=== PATIENT | female | born 2000 | race Caucasian/White ===

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

== ENCOUNTER 2019-04-03 16:30 | Outpatient (RCR) | payer MEDICAID, SELFPAY ==
--- NOTE | 2018-10-09 16:02 | HP.PTEVAL_ITS ---
Patient's Visit Information CAMERON TOMLIN is a 18 year old F referred to Physical Therapy by NICOLLE KINGSTON with a diagnosis of Left Knee Surgery. Date of Evaluation: 10/09/18 Physical Therapist: Sarah Beth Larsen DPT - Visit Plan Frequency: 2x /Week Duration: 4 Weeks Plan: Follow PROTOCOL - Subjective Findings: Patient reports that she had a left knee surgery by Dr. Robert at [facility] September 20, 2018. Went home after surgery- lives in a single story home with porch stairs- lives with fiancee and child who is 6 months old. Does have some help. Patient reports that the knee feels great. Worst: 4/10 Agg: walking long distances, sitting in the same position for to long. Best: 0/10 Best: ice- leans more toward Naproxen instead of Percoset but prefers to take neither. Pain is located in the anterior portion- no radiating pain. Decribes pain as dull and achy. No N/T radiating but does have mild numbness around the incision. Is putting a little bit of weight on it. They never gave her a brace - so she just has it wrapped- per MD. Sees the MD on October 20. Sleep: keeps her awake- hard to get comfortable. PMHx: right knee surgery, sports induced asthma. Meds: Percoset as needed. Zoloft. Fully I prior to surgery- not currently driving. Work: not currently- works at [employer] standing and walking fast paced for most of the day. - Objective posture: FH, RS, increased kyphosis. Gait: antalgic- non weight bearing on the left LE with axillary crutches. Sitting with leg straight out in front of her. WS: pt will weight shift slightly onto the left LE. Palpation: tender along medial border of the patella. ROM: 0-30 degrees. Strength: ankle: 5/5, Knee: quad set visible but unable to do unassisted SLR, hip: 4-/5, core: poor. Flex: HS: mod Gastroc: mod - Goals Goal 1:: Patient will be I with HEP and progression Goal Time Frame: 4-6 Weeks Goal 2:: Patient will ambulate >300 feet with a normalized gait pattern Goal Time Frame: 4-6 Weeks Goal 3:: Patient will demo 0-130 degrees of ROM as allowed by MD protocol Goal Time Frame: 4-6 Weeks Goal 4:: Patient will asc/desc 8 stairs recip Goal Time Frame: 4-6 Weeks - Rehabilitation Potential Physical Therapy Diagnosis: Patient presents with hypomobility- she has decreased ROM, strength, flex and muscular endurance s/p left knee surgery leading to abnormal gait and decreased ability to perform ADL's. Rehabilitation Potential: Fair - Anticipated Interventions Patient/Client Instruction: Educate patient on: Benefits of Fitness Program Therapeutic Exercise to Include: Strength training, Endurance training, Balance training, Coordination, Agility training, Body mechanics, Postural training, Flexibilty training, Gait and locomotor training, Passive ROM, Active ROM, Dynamic Lumbar Stabilization Comment: Follow Protocol For the Purpose of:: To improve muscle performance and motor function Functional electric stimulation: Yes TENS: Yes Cryotherapy (ice pack, ice massage): Yes Thermo therapy (hot pack): Yes Ultrasound (thermal/non thermal): No Thank you for the opportunity to evaluate your patient. For Medicare and Medicare HMO plans, please review the plan of care and approve it. It will need to be FAXED BACK to us at [phone] for Medicare purposes. For Medicare only, by signing this I certify the plan of care. Please let me know if there are questions or concerns regarding this plan of care. Physician Signature: Date:
--- NOTE | 2018-11-09 11:32 | HP.PTREVAL ---
NICOLLE KINGSTON, It has been my pleasure to treat CAMERON TOMLIN over the last 8 visits for Left Knee Surgery. Please see the progress note below for an update on the physical therapy plan of care! Subjective: Only minor pain this date Objective/Function: L knee girth: 42 cm. L knee ROM: 0-87 degrees. L knee MMT: 4/5 throughout Plan Plan: Cont with POC with focus on ROM Goals Goal 1:: Patient will be I with HEP and progression Goal Time Frame: 4-6 Weeks Goal 2:: Patient will ambulate >300 feet with a normalized gait pattern Goal Time Frame: 4-6 Weeks Goal 3:: Patient will demo 0-130 degrees of ROM as allowed by MD protocol Goal Time Frame: 4-6 Weeks Goal 4:: Patient will asc/desc 8 stairs recip Goal Time Frame: 4-6 Weeks Anticipated Interventions Patient/Client Instruction: Educate patient on: Benefits of Fitness Program Therapeutic Exercise to Include: Strength training, Endurance training, Balance training, Coordination, Agility training, Body mechanics, Postural training, Flexibilty training, Gait and locomotor training, Passive ROM, Active ROM, Dynamic Lumbar Stabilization Comment: Follow Protocol For the Purpose of:: To improve muscle performance and motor function Functional electric stimulation: Yes TENS: Yes Cryotherapy (ice pack, ice massage): Yes Thermo therapy (hot pack): Yes Ultrasound (thermal/non thermal): No Please do not hesitate to contact me at [phone] by phone or if you have questions or concerns regarding this new plan of care! Sincerely, Enrique Aragon, PT, ATC
--- NOTE | 2018-12-25 16:57 | HP.PTREVAL ---
NICOLLE KINGSTON, It has been my pleasure to treat CAMERON TOMLIN over the last 12 visits for Left Knee Surgery. Please see the progress note below for an update on the physical therapy plan of care! Subjective: Pt is to see the DrJaycob on Objective/Function: L knee pain 2/10, increases to 4/10 at worst. L knee MMT: 3+/5 with flexion and extension. L knee ROM: 0-120. Pt is progressing well but lacks gross strength for functional activity Plan Plan: Cont as bhavesh Goals Goal 1:: Patient will be I with HEP and progression Goal Time Frame: 4-6 Weeks Goal 2:: Patient will ambulate >300 feet with a normalized gait pattern Goal Time Frame: 4-6 Weeks Goal 3:: Patient will demo 0-130 degrees of ROM as allowed by MD protocol Goal Time Frame: 4-6 Weeks Goal 4:: Patient will asc/desc 8 stairs recip Goal Time Frame: 4-6 Weeks Anticipated Interventions Patient/Client Instruction: Educate patient on: Benefits of Fitness Program Therapeutic Exercise to Include: Strength training, Endurance training, Balance training, Coordination, Agility training, Body mechanics, Postural training, Flexibilty training, Gait and locomotor training, Passive ROM, Active ROM, Dynamic Lumbar Stabilization Comment: Follow Protocol For the Purpose of:: To improve muscle performance and motor function Functional electric stimulation: Yes TENS: Yes Cryotherapy (ice pack, ice massage): Yes Thermo therapy (hot pack): Yes Ultrasound (thermal/non thermal): No Please do not hesitate to contact me at [phone] by phone or if you have questions or concerns regarding this new plan of care! Sincerely, Enrique Aragon, PT, ATC
--- NOTE | 2019-02-15 18:00 | HP.PTREVAL_ITS ---
NICOLLE KINGSTON, It has been my pleasure to treat CAMERON TOMLIN over the last 17 visits for Left Knee Surgery. Please see the progress note below for an update on the physical therapy plan of care! Subjective: My knee is sore today. 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 L knee ROM: 0-125 degrees. L knee MMT: 4/5 throughout. Pt would benefit from further skilled therapy to improve ROM and strength Plan Plan: cont with POC Goals Goal 1:: Patient will be I with HEP and progression Goal Time Frame: 4-6 Weeks Goal 2:: Patient will ambulate >300 feet with a normalized gait pattern Goal Time Frame: 4-6 Weeks Goal 3:: Patient will demo 0-130 degrees of ROM as allowed by MD protocol Goal Time Frame: 4-6 Weeks Goal 4:: Patient will asc/desc 8 stairs recip Goal Time Frame: 4-6 Weeks Anticipated Interventions Patient/Client Instruction: Educate patient on: Benefits of Fitness Program Therapeutic Exercise to Include: Strength training, Endurance training, Balance training, Coordination, Agility training, Body mechanics, Postural training, Flexibilty training, Gait and locomotor training, Passive ROM, Active ROM, Dynamic Lumbar Stabilization Comment: Follow Protocol For the Purpose of:: To improve muscle performance and motor function Functional electric stimulation: Yes TENS: Yes Cryotherapy (ice pack, ice massage): Yes Thermo therapy (hot pack): Yes Ultrasound (thermal/non thermal): No Please do not hesitate to contact me at [phone] by phone or if you have questions or concerns regarding this new plan of care! Sincerely, Enrique Aragon, PT, ATC
--- NOTE | 2019-04-03 17:00 | HP.PTREVAL ---
NICOLLE KINGSTON, It has been my pleasure to treat CAMERON TOMLIN over the last 19 visits for Left Knee Surgery. Please see the progress note below for an update on the physical therapy plan of care! Subjective: Pt returns today after an extended period of illness with her child and long work hours. Objective/Function: L knee MMT: 4-/5 throughout. ROM: 0-130 degrees. Pain 5/10 currently. Pt would benefit from further skilled PT for strenthening at this time Plan Plan: cont with POC Goals Goal 1:: Patient will be I with HEP and progression Goal Time Frame: 4-6 Weeks Goal 2:: Patient will ambulate >300 feet with a normalized gait pattern Goal Time Frame: 4-6 Weeks Goal 3:: Patient will demo 0-130 degrees of ROM as allowed by MD protocol Goal Time Frame: 4-6 Weeks Goal 4:: Patient will asc/desc 8 stairs recip Goal Time Frame: 4-6 Weeks Anticipated Interventions Patient/Client Instruction: Educate patient on: Benefits of Fitness Program Therapeutic Exercise to Include: Strength training, Endurance training, Balance training, Coordination, Agility training, Body mechanics, Postural training, Flexibilty training, Gait and locomotor training, Passive ROM, Active ROM, Dynamic Lumbar Stabilization Comment: Follow Protocol For the Purpose of:: To improve muscle performance and motor function Functional electric stimulation: Yes TENS: Yes Cryotherapy (ice pack, ice massage): Yes Thermo therapy (hot pack): Yes Ultrasound (thermal/non thermal): No Please do not hesitate to contact me at [phone] by phone or if you have questions or concerns regarding this new plan of care! Sincerely, Enrique Aragon, PT, ATC
== END 2019-04-03 19:00 | disposition home or self-care (01) ==
LOC: PT 16:30
PROVIDERS: Family Provider Internal Medicine; PCP Internal Medicine
DX: M25.362 Other instability, left knee (principal)
CPT/HCPCS: 97110; 97161; 97530

== ENCOUNTER 2019-04-30 19:46 | Emergency (ER) | payer MEDICAID, SELFPAY ==
[2019-01-10 10:48] VITALS: BMI 36.3
[2019-04-30 19:48] VITALS: BP 120/79; PULSE 102; RESP 18; TEMP 36.3; O2SAT 98; BMI 38.7
[2019-04-30 20:42] LABS: Mucous, Urine 0 SEEN /hpf (<or=2+)
[2019-04-30 20:45] LABS: Color, Urine Yellow (Yellow); Glucose, Dipstick Normal (Normal); Ketone-Dipstick 5 mg/dl (Negative); Leukocyte Esterase-Dipstick 500 /ul (Negative); Nitrite-Dipstick Negative (Negative); Occult Blood-Urine 10 /ul (Negative); Protein-Dipstick Negative (Negative); Urine Bilirubin Dipstick Negative (Negative); Urine Clarity Sl. Cloudy (Clear); Urine Urobilinogen Normal (Normal)
[2019-04-30 20:51] LABS: Amorphous Sediment 1+ URATE; Bacteria RARE /hpf (None Seen); Red Blood Cells-Urine 0-5 SEEN /hpf (0-5); Squamous Epithelial Cells - UA 5-10 SEEN /hpf (5-10); White Blood Cells 10-25 SEEN /hpf (0-5)
[2019-04-30 21:25] LABS: Absolute Lymphocyte Count 3.78 X10^3/uL (0.83-4.51); Absolute Neutrophil Count 5.2 X10^3/uL (2.0-7.7); Basophil# 0.06 X10^3/uL; Basophil% 0.6 % (0-1); Eosinophil# 0.13 X10^3/uL; Eosinophils% 1.3 % (0-5); Hematocrit 38.3 % (37-47); Hemoglobin 12.5 g/dL (12.0-15.0); Lymphocyte # 3.78 X10^3/ul (4.0); Lymphocyte % 38.3 % (19-41); Mean Corp Hgb Conc 32.6 g/dL (32-36); Mean Corpuscular Hgb 26.8 pg (27.0-32.0); Monocyte# 0.68 X10^3/uL; Monocyte% 6.9 % (0-10); NRBC Flagged by Analyzer 0 % (0-5); Neutrophil # 5.19 X10^3/uL (2.7-7.7); Neutrophil % 52.6 % (47-70); Platelet Count 249 K/mm3 (150-450); RBC Distribution Width CV 13.7 % (11.6-14.6); RBC Distribution Width SD 40.5 fl (35.1-43.9); Red Blood Count 4.67 M/mm3 (4.2-5.4); White Blood Count 9.9 K/mm3 (4.4-11.0)
[2019-04-30 21:38] LABS: Anion Gap 4 (5-15); BUN 14 mg/dL (7-18); BUN/Creat Ratio 15.6 RATIO (10-20); Calcium,Total 9.3 mg/dL (8.5-10.1); Chloride 111 mmol/L (98-107); EST Glomerular Filtration Rate 85 mL/min (>60); Est Glom Filt Rate - Afr Amer 102 mL/min (>60); Estimated Creatinine Clearance 78.86 ml/min; Glucose 101 mg/dL (74-106); Potassium 3.9 mmol/L (3.5-5.1); Sodium Level 140 mmol/L (136-145)
[2019-04-30 22:05] LABS: Internal QC Validated? YES +Cl - CLEAR BKGD; Pregnancy, Urine Negative Negative
--- NOTE | 2019-04-30 22:18 | RAD_ITS ---
STUDY: X-RAY - ABDOMEN/PELVIS REASON FOR EXAM: Female, 19 years old. PT WITH LOWER ABDOMINAL/PELVIC PAIN X FOUR DAYS. CONSTIPATION AND NAUSEA. TECHNIQUE: Two AP supine views of the abdomen and pelvis. COMPARISON: None. FINDINGS: Normal visualized lung bases. There is an unremarkable bowel gas pattern. There is no demonstrated free abdominal air. The visualized liver, spleen and kidneys are grossly normal in size and morphology. Normal soft tissue structures. Normal visualized osseous structures. RAD/Abdomen Single View IMPRESSION: Normal x-ray examination of the abdomen and pelvis. Electronically Signed: Gabe Nice MD at 22:35 EST , Service support ,
[2019-04-30] MEDS: Ketorolac 30 MG/ML Syringe IV (22:40)
--- NOTE | 2019-04-30 23:08 | ED.VIS.GEN ---
History of Present Illness Chief Complaint: Abd Pain Informant: Patient, Family Narrative: Patient states that for the past year she has had intermittent pelvic pain. She states that after delivering last year she got the Nexplanon implant. Therefore she has not had a period. 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 She states that nothing is really different with her symptoms tonight other than they are more intense than they have been. She also notes that she has been constipated for the past couple days. He does note some associated nausea but no fever or vomiting. No rashes. Past Medical History - Allergies and Home Meds Allergies/Adverse Reactions: Allergies guava Allergy (Mild, Verified 04/30/19 19:47) Hives pomegranate Allergy (Mild, Verified 04/30/19 19:47) Hives Primary Care Physician: Brit Payne MD [Primary Care Provider] - Smoking Status: Never smoker Review of Systems General: Denies: Chills, Fever, Sweats Eyes: Denies: Visual changes - bilaterally, Diplopia ENT: Denies: Rhinorrhea, Sore throat Cardiovascular: Denies: Chest pain, Palpitations Respiratory: Denies: Dyspnea, Cough, Dyspnea on exertion Gastrointestinal: Reports: Abdominal pain, Constipation. Denies: Nausea, Vomiting, Diarrhea, Melena, Hematochezia Genitourinary: Denies: Dysuria, Hematuria, Frequency Musculoskeletal: Reports: Back pain. Denies: Neck pain, Extremity Pain Skin: Denies: Rash, Wounds Neurological: Denies: Headache, Weakness, Numbness Physical Exam Vital Signs/Narrative: Vital Signs Temp Pulse Resp BP Pulse Ox 04/30/19 19:48 97.4 F L 102 H 18 120/79 98 Inital Vital Signs reviewed: Yes General: Well nourished, Well developed, Obese, No Acute Distress Head: Normocephalic, Atraumatic Eyes: Perrl, EOMI ENT: Moist mucous membranes, No rhinorrhea Neck: Supple, Nontender Cardiovascular: Regular rate, Regular rhythm, No murmurs Respiratory: No distress, CTA bilaterally, Chest nontender Abdomen: Soft, Nondistended, Normal bowel sounds, Tender. Negative for: Guarding, Rebound tenderness Back: Nontender, Normal Inspection Extremities: Nontender, No edema Skin: Normal color, No rash Neurological: Alert, Oriented x3, Cranial nerves II-XII grossly intact, Normal Strength, Normal Sensation Psychological: Normal affect, Normal Mood Diagnostic/Tx/Re-eval - Medical Decision Making Imp temps have been intermittently present for the past year. Her white count is normal. Urinalysis is normal. She is not . X-ray of the abdomen demonstrates no fecal impaction. There is stool in the right hemicolon but not any significant amount of stool in the transverse or descending colon. She received a dose of Toradol. She is sleeping on repeat examination. Patient will be discharged home to follow-up with gynecology. She is to return if worsening or concerns. ED Disposition - Plan for ED Patient: Disposition: Home or Assisted Living Diagnosis: Abdominal pain Instructions: ABDOMINAL PAIN, Unknown Cause, (Female) Referrals: Vivien Burgos MD [STAFF PHYSICIAN] - As soon as possible
[2019-04-30 23:13] VITALS: BP 128/65; PULSE 99; RESP 16; O2SAT 95
== END 2019-04-30 23:20 | disposition home or self-care (01) ==
PROVIDERS: Emergency Provider Emergency Medicine; Family Provider Internal Medicine; PCP Internal Medicine
DX: R10.9 Unspecified abdominal pain (principal); E66.9 Obesity, unspecified
CPT/HCPCS: 74018; 80048; 81001; 81025; 85025; 96374; 99283; A4216

== ENCOUNTER → 2019-05-09 16:52 | Outpatient (CLI) | payer MEDICAID, SELFPAY ==
[2019-05-09 15:57] VITALS: BMI 38.7
== END ==
PROVIDERS: PCP Internal Medicine; Referring Provider Nurse Practitioner Women's Health; Visit Provider Nurse Practitioner Women's Health
DX: N39.0 Urinary tract infection, site not specified (principal)
CPT/HCPCS: 87086; 87088

== ENCOUNTER → 2019-05-14 18:11 | Outpatient (CLI) | payer MEDICAID, SELFPAY ==
[2019-05-09 15:57] VITALS: BMI 38.7
[2019-05-11 11:59] VITALS: BMI 38.0
--- NOTE | 2019-05-14 18:52 | US_ITS ---
HISTORY: Pelvic pain. Unknown LMP. 64 images. Previous imaging is from January 24, 2016, when the patient was . 64 images. Endovaginal imaging only. Findings: Urinary bladder is not completely decompressed. The uterus measures 6.6 x 3 x 3.5 cm. Endometrial stripe is homogeneous at 8 mm. Myometrium is homogeneous. No large masses or fluid collections. The left ovary is normal in appearance with follicles. Left ovary measures 3.7 x 2.4 x 3.6 cm. Color and pulse-wave Doppler imaging suggests normal flow to left ovarian parenchyma. The right ovary measures 3.9 x 2.1 x 2.5 cm. Follicles are present within the right ovarian parenchyma. Color Doppler imaging suggests flow to right ovarian parenchyma. Pulse-wave Doppler imaging suggest arterial and venous waveforms within the right ovarian parenchyma. US/Transvaginal Non- IMPRESSION: Normal. at 0610 Reported and signed by: Terrence Vann MD Electronically Signed: Terrence Vann MD at 6:08 EST Tel , Service support ,
--- NOTE | 2019-05-14 18:52 | US_ITS ---
HISTORY: Pelvic pain. Unknown LMP. 64 images. Previous imaging is from January 24, 2016, when the patient was . 64 images. Endovaginal imaging only. Findings: Urinary bladder is not completely decompressed. The uterus measures 6.6 x 3 x 3.5 cm. Endometrial stripe is homogeneous at 8 mm. Myometrium is homogeneous. No large masses or fluid collections. The left ovary is normal in appearance with follicles. Left ovary measures 3.7 x 2.4 x 3.6 cm. Color and pulse-wave Doppler imaging suggests normal flow to left ovarian parenchyma. The right ovary measures 3.9 x 2.1 x 2.5 cm. Follicles are present within the right ovarian parenchyma. Color Doppler imaging suggests flow to right ovarian parenchyma. Pulse-wave Doppler imaging suggest arterial and venous waveforms within the right ovarian parenchyma. US/Pelvic (Non ) IMPRESSION: Normal. at 0610 Reported and signed by: Terrence Vann MD Electronically Signed: Terrence Vann MD at 6:08 EST Tel , Service support ,
== END ==
PROVIDERS: PCP Internal Medicine; Visit Provider Nurse Practitioner Women's Health
DX: R10.2 Pelvic and perineal pain (principal)
CPT/HCPCS: 76830; 76856

== ENCOUNTER 2019-06-21 17:00 | Outpatient (RCR) | payer MEDICAID, SELFPAY ==
[2019-01-10 10:48] VITALS: BMI 36.3
--- NOTE | 2019-11-13 13:42 | HP.PT.NRP ---
CAMERON CHÁVEZ was seen in my office for initial evaluation on . The following Plan of Care was established for this patient: This patient was last seen in our office . Pertinent comments regarding their Physical therapy will appear below: Pt was treated for 8 PT visits for L knee pain through the date of 06/21/19. Pt has not returned through todays date and is therefore discontinued at this time. At this point I will be discontinuing this patient from physical therapy. I would be happy to see this patient again in the future if found appropriate by the physician. Thank you! Enrique Aragon, PT, ATC
== END 2019-06-21 19:00 | disposition home or self-care (01) ==
LOC: PT 17:00
PROVIDERS: Family Provider Internal Medicine; PCP Internal Medicine
DX: M25.362 Other instability, left knee (principal)
CPT/HCPCS: 97110; 97164

== ENCOUNTER → 2019-09-07 14:15 | Outpatient (CLI) | payer MEDICAID, SELFPAY ==
[2019-09-07 14:10] VITALS: BMI 38.7
--- NOTE | 2019-09-07 14:15 | RAD_ITS ---
STUDY: X-RAY - LEFT FOOT CLINICAL: Female, 19 years old. great toe injury, pain extends to top of foot TECHNIQUE: 3 view(s) of the foot. COMPARISON: None. FINDINGS: Normal talus, calcaneus, and tarsal bones. Normal visualized subtalar, talonavicular, calcaneocuboid, tarsal and tarsometatarsal articulations. Normal metatarsi. Normal metatarsophalangeal joint of the great toe. Normal tibial and fibular sesamoid bones. Normal interphalangeal joint of the great toe. Normal phalanges of the great toe. Normal second through fifth metatarsophalangeal joints. Normal interphalangeal joints and phalanges of the lesser toes. The soft tissue structures are unremarkable. RAD/Foot min 3 Views IMPRESSION: Normal x-ray examination of the foot. Electronically Signed: Malika Dillard, at 14:53 EDT Tel , Service support ,
== END ==
PROVIDERS: PCP Internal Medicine; Referring Provider Physician Assistant Surgical; Visit Provider Physician Assistant Surgical
DX: S90.32XA Contusion of left foot, initial encounter (principal)
CPT/HCPCS: 73630

== ENCOUNTER → 2020-03-27 | Outpatient (CLI) | payer MEDICAID, SELFPAY ==
[2019-09-07 14:10] VITALS: BMI 38.7
== END | disposition home or self-care (01) ==
PROVIDERS: PCP Internal Medicine; Referring Provider Otolaryngology; Visit Provider Otolaryngology
DX: J01.90 Acute sinusitis, unspecified (principal)
CPT/HCPCS: 87070

== ENCOUNTER → 2020-10-09 15:10 | Outpatient (CLI) | payer MEDICAID, SELFPAY ==
[2020-10-08 16:52] VITALS: BMI 37.3
[2020-10-09 16:39] LABS: Absolute Lymphocyte Count 2.94 X10^3/uL (0.83-4.51); Absolute Neutrophil Count 4.2 X10^3/uL (2.0-7.7); Basophil# 0.03 X10^3/uL; Basophil% 0.4 % (0-1); Eosinophil# 0.12 X10^3/uL; Eosinophils% 1.5 % (0-5); Lymphocyte # 2.94 X10^3/ul (0.83-4.51); Lymphocyte % 37.7 % (19-41); Mean Corp Hgb Conc 33.3 g/dL (32-36); Mean Corpuscular Hgb 29.5 pg (27.0-32.0); Mean Corpuscular Volume 88.4 fL (81-99); Mean Platelet Vol. 9.2 fl (6.2-12.0); Monocyte# 0.51 X10^3/uL; Monocyte% 6.5 % (0-10); NRBC Flagged by Analyzer 0 % (0-5); Neutrophil # 4.18 X10^3/uL (2.7-7.7); Neutrophil % 53.6 % (47-70); Platelet Count 277 K/mm3 (150-450); RBC Distribution Width CV 12.1 % (11.6-14.6); Red Blood Count 4.41 M/mm3 (4.2-5.4); White Blood Count 7.8 K/mm3 (4.4-11.0)
[2020-10-09 16:48] LABS: Internal QC Validated? YES +Cl - CLEAR BKGD; Pregnancy, Serum, hCG Quali. NEGATIVE Negative
[2020-10-09 16:53] LABS: Prothrombin Time (Protime)PT. 12.8 SECONDS (11.7-14.9)
[2020-10-09 16:55] LABS: AST(SGOT) 11 U/L (15-37); Alanine Aminotransfer ALT/SGPT 18 U/L (13-56); Albumin, Serum 3.5 g/dL (3.2-5.0); Alkaline Phosphatase 90 U/L (45-117); Anion Gap 5 (5-15); BUN 10 mg/dL (7-18); BUN/Creat Ratio 12.5 RATIO (10-20); Chloride 105 mmol/L (98-107); EST Glomerular Filtration Rate 95 mL/min (>60); Est Glom Filt Rate - Afr Amer 115 mL/min (>60); Globulin 3.5 g/dL (2.2-4.2); Glucose 78 mg/dL (74-106); Potassium 3.4 mmol/L (3.5-5.1); Sodium Level 139 mmol/L (136-145)
== END ==
PROVIDERS: PCP Internal Medicine; Referring Provider Internal Medicine; Visit Provider Internal Medicine
DX: N91.2 Amenorrhea, unspecified (principal); R23.8 Other skin changes
CPT/HCPCS: 36415; 80053; 84703; 85025; 85610

== ENCOUNTER → 2021-01-27 | Outpatient (CLI) | payer MEDICAID, SELFPAY ==
[2021-01-30 17:32] LABS: HPV Reflexed? NOT INDICATED
== END | disposition home or self-care (01) ==
PROVIDERS: PCP Internal Medicine; Referring Provider Obstetrics & Gynecology; Visit Provider Obstetrics & Gynecology
DX: R30.0 Dysuria (principal); Z12.4 Encounter for screening for malignant neoplasm of cervix
CPT/HCPCS: 87086; 87088; 88175; G0145

== ENCOUNTER 2021-05-29 09:28 | Emergency (ER) | payer MEDICAID, SELFPAY ==
[2021-05-29 09:30] VITALS: BP 114/78; PULSE 91; RESP 16; TEMP 36.8; O2SAT 97; BMI 41.6
--- NOTE | 2021-05-29 10:00 | CT_ITS ---
STUDY: CT BRAIN WITHOUT CONTRAST REASON FOR EXAM: Female, 21 years old. Head injury due to a fall. RADIATION DOSAGE (If Supplied By Facility): CTDIvol = ( 44.99 ) mGy, DLP = ( 779.24 ) mGycm TECHNIQUE: Transaxial CT imaging of the brain was performed without administration of intravenous contrast material. Individualized dose optimization techniques were used for this CT. COMPARISON: No relevant priors. FINDINGS: Normal soft tissue structures. Normal calvarium. Normal size ventricles and extra-axial spaces for the patient''s age. Normal white matter tracts of the cerebral hemispheres. Normal basal ganglia and thalami. Normal brainstem. Normal cerebellum. There is no intracranial hemorrhage. There are no findings of an acute ischemic infarction. Normal visualized paranasal sinuses. CT/Brain/Head without Contrast IMPRESSION: Normal unenhanced CT scan of the brain. Electronically Signed: Julian Milan MD at 10:43 EST ,
--- NOTE | 2021-05-29 10:00 | RAD_ITS ---
STUDY: X-RAY - RIGHT KNEE REASON FOR EXAM: Female, 21 years old. Trauma TECHNIQUE: 3 view(s) of the knee. COMPARISON: None. FINDINGS: Normal visualized distal femur. Normal visualized proximal tibia and fibula. Normal proximal tibiofibular articulation. Normal medial femorotibial compartment. Normal lateral femorotibial compartment. Normal patellofemoral articulation. Moderate sized joint effusion. RAD/Knee 3 Views IMPRESSION: Moderate size joint effusion. Electronically Signed: Julian Milan MD at 11:12 EST ,
--- NOTE | 2021-05-29 10:00 | CT_ITS ---
STUDY: CT CERVICAL SPINE WITHOUT CONTRAST REASON FOR EXAM: Female, 21 years old. Neck pain following a fall. RADIATION DOSAGE (If Supplied By Facility): CTDIvol = ( 26.10 ) mGy, DLP = ( 601.39 ) mGycm TECHNIQUE: High resolution transaxial imaging was performed without contrast material. Sagittal and coronal images were reconstructed. Individualized dose optimization techniques were used for this CT. COMPARISON: None FINDINGS: Normal craniovertebral junction. Normal anterior atlantoaxial articulation. Normal odontoid process. There is straightening of the normal cervical lordosis. Normal vertebral bodies and posterior osseous elements. C2-3: Normal endplates. Normal disc height and morphology. Normal central canal and intervertebral neuroforamina. C3-4: Normal endplates. Normal disc height and morphology. Normal central canal and intervertebral neuroforamina. C4-5: Normal endplates. Normal disc height and morphology. Normal central canal and intervertebral neuroforamina. C5-6: Normal endplates. Normal disc height and morphology. Normal central canal and intervertebral neuroforamina. C6-7: Normal endplates. Normal disc height and morphology. Normal central canal and intervertebral neuroforamina. C7-T1: Normal endplates. Normal disc height and morphology. Normal central canal and intervertebral neuroforamina. Normal visualized soft tissue structures. CT/Spine Cervical without Contras IMPRESSION: Normal unenhanced CT examination of the cervical spine. Electronically Signed: Julian Milan MD at 10:44 EST ,
--- NOTE | 2021-05-29 10:02 | EDS_ITS ---
HPI HPI - Fall History of Present Illness Chief Complaint: Fall Narrative Narrative: Patient presents via EMS with right knee, and hand pain. She slipped on black, thin ice today while she was trying to get into her car. She has had bilateral knee surgery for patellar instability. She states that her right kneecap was displaced laterally and she popped it back in. She was unable to stand afterwards. She sustained injury to her right hand on her fifth digit with mild abrasions. Additionally, she complains of pain at the base of her skull as she struck her head. No loss of consciousness. She does not take blood thinners. [facility] Medical History Amenorrhea Anxiety and depression asthma sports induced Chest pain Easy bruising Epigastric pain GERD (gastroesophageal reflux disease) Home Medications trazodone 50 mg tablet 50 mg PO QHS PRN #90 tab 05/01/19 [Rx Last Taken Unknown] buspirone 7.5 mg tablet 7.5 mg PO BID #60 tab 11/12/20 [Rx Last Taken Unknown] L norgest/E estradiol-E estrad 0.15 mg-30 mcg (84)/10 mcg(7) tabs,3mos 1 tab PO DAILY #91 tab 01/27/21 [Rx Last Taken Unknown] dexamethasone 6 mg tablet 6 mg PO DAILY #5 tab 04/14/21 [Rx Last Taken Unknown] Allergy/AdvReac Type Severity Reaction Status Date / Time guava Allergy Mild Hives Verified 05/29/21 09:29 pomegranate Allergy Mild Hives Verified 05/29/21 09:29 dragonfruit Allergy Mild difficulty Uncoded 05/29/21 09:29 breathing Family History Mother Cancer non hodgkins lymphoma Father Hypertension Surgical History H/O: knee surgery Social History Smoking Status: Never smoker alcohol intake: never details: social substance use type: does not use frequency: 1-2 times per week seatbelt use: always do you feel safe at home: Yes additional social history: Eric [facility] ROS ED ROS Narrative Constitutional: No fever, no chills. HEENT: No sore throat. Positive pain at base of skull. Positive neck pain. No loss of vision. No rhinorrhea. Cardiovascular: No chest pain. No palpitations. No pedal edema. Respiratory: No cough, no shortness of breath. Abdominal: No abdominal pain. No nausea. No vomiting. Genitourinary: No dysuria. No hematuria. Musculoskeletal: No myalgias. Right hand/fifth digit pain. Right lateral knee pain. Pain at base of skull/occiput. Neurologic: No headaches. No dizziness. No lightheadedness. Skin: No rash. No change in color. Psychiatric: No depression. No anxiety. EXAM Physical Exam Narrative Exam Narrative: Afebrile. Vital signs noted. HEENT: Normocephalic. Mild tenderness to palpation occiput and at base of skull. PERRL, EOMI. Neck soft and supple. No point tenderness or step off. Cardiovascular: Regular rate and rhythm. No murmurs, rubs, or gallops appreciated. Respiratory: No tachypnea. Lungs clear to auscultation bilaterally. Gastrointestinal: Abdomen soft, nontender, with normoactive bowel sounds. No rebound or guarding. Neurological: Awake. Alert. Nonfocal, nonlateralizing. Skin: No rash. Normal color. No pallor. Multiple abrasions to fourth and fifth digits right hand, no active bleeding. Musculoskeletal: No pedal edema. Limited range of motion right knee secondary to pain. Diffuse tenderness of patella and lateral tibial plateau. Neurovascular intact distally with EHL intact and palpable dorsalis pedis pulse. Const Vital Signs: 05/29/21 09:30 05/29/21 13:16 Temperature 98.2 F Temperature Source Oral Pulse Rate 91 86 Respiratory Rate 16 18 Blood Pressure 114/78 Blood Pressure Mean 90 Pulse Ox 97 98 Oxygen Delivery Method Room Air MDM MDM MDM Narrative Medical decision making narrative: Comprehensive work-up was pursued. CT of the brain is normal. CT of the cervical spine shows no evidence of fracture. X-ray of the right knee shows moderate-sized joint effusion but no evidence of fracture. She has normal x-ray of her hand. She was slightly nauseated after she was given a [place], so she was administered a Zofran ODT. She will be placed in a knee immobilizer and given crutches. She will continue ice and elevation at home. Her mother states that she would like to follow-up with her own personal orthopedic surgeon at the [facility]. I feel she be discharged safely home with follow-up. Return instructions to the emergency department were reviewed. Disposition is discharged home in stable condition. Radiography Diagnostic Testing: Clinical Impression(s) from Imaging Studies Brain CT 05/29/21 10:00 IMPRESSION: Normal unenhanced CT scan of the brain. Electronically Signed: Julian Milan MD at 10:43 EST , Cervical Spine CT 05/29/21 10:00 IMPRESSION: Normal unenhanced CT examination of the cervical spine. Electronically Signed: Julian Milan MD at 10:44 EST , Knee X-Ray 05/29/21 10:00 IMPRESSION: Moderate size joint effusion. Electronically Signed: Julian Milan MD at 11:12 EST , Hand X-Ray 05/29/21 10:35 IMPRESSION: Normal x-ray examination of the hand. Electronically Signed: Julian Milan MD at 11:11 EST , Discharge Plan Triage Chief Complaint: Fall Other Complaint: Lower Extremity Injury ED Provider: Harvey Goldstein Dx/Rx/DC Orders Clinical Impression: Fall, Knee sprain, Closed head injury, Contusion of hand Instructions: ED Hand Contusion, ED Head Injury (Adult), ED Knee Effusion, ED Knee Sprain Prescriptions: No Action trazodone 50 mg tablet 50 mg PO QHS PRN (Reason: insomnia) Qty: 90 RF: 1 L norgest/e.estradiol-e.estrad [Ashlyna] 0.15 mg-30 mcg (84)/10 mcg (7) tablets,dose pack,3 month 1 tab PO DAILY Qty: 91 RF: 4 buspirone 7.5 mg tablet 7.5 mg PO BID Qty: 60 RF: 1 dexamethasone [Decadron] 6 mg tablet 6 mg PO DAILY Qty: 5 RF: 0 Primary Care Provider: Shahbaz Aleman Referrals: Shahbaz Aleman MD [Primary Care Provider] - Disposition Disposition: Home, Self Care Discharge Date/Time: 05/29/21 13:55
[2021-05-29] MEDS: HYDROcodone Bitartrate/Apap 5/325 Tablet PO (10:11)
--- NOTE | 2021-05-29 10:35 | RAD_ITS ---
STUDY: X-RAY - RIGHT HAND REASON FOR EXAM: Female, 21 years old. History of fall. TECHNIQUE: 3 view(s) of the hand. COMPARISON: None. FINDINGS: Normal radiocarpal articulation. Normal distal radioulnar joint. Normal visualized carpal bones. Normal carpal articulations Normal carpometacarpal articulation of the thumb. Normal second through fifth carpometacarpal joints. Normal metacarpi. Normal metacarpophalangeal joint of the thumb. Normal interphalangeal joint of the thumb. Normal proximal and distal phalanges of the thumb. Normal metacarpophalangeal joints of the second through fifth fingers. Normal proximal and distal interphalangeal joints of the second through fifth fingers. Normal phalanges of the second through fifth fingers. The soft tissue structures are unremarkable. RAD/Hand Min 3 Views IMPRESSION: Normal x-ray examination of the hand. Electronically Signed: Julian Milan MD at 11:11 [facility] ,
[2021-05-29] MEDS: Ondansetron ODT 4 MG Tablet PO (12:54)
[2021-05-29 13:16] VITALS: PULSE 86; RESP 18; O2SAT 98
[2021-05-29] MEDS: COVID-19 VACC, MRNA(PFIZER)/PF 30 MCG/0.3 ML SYRINGE IM (13:20)
== END 2021-05-29 13:55 | disposition home or self-care (01) ==
PROVIDERS: Emergency Provider Emergency Medicine; PCP Family Medicine; Visit Provider Emergency Medicine
DX: S09.90XA Unspecified injury of head, initial encounter (principal); S60.511A Abrasion of right hand, initial encounter; S83.91XA Sprain of unspecified site of right knee, initial encounter; R11.0 Nausea; V48.4XXA Person boarding or alighting a car injured in noncollision transport accident, initial encounter; Y93.89 Activity, other specified; Y99.9 Unspecified external cause status; Y92.9 Unspecified place or not applicable; W00.2XXA Other fall from one level to another due to ice and snow, initial encounter; K21.9 Gastro-esophageal reflux disease without esophagitis; J45.990 Exercise induced bronchospasm; Z23 Encounter for immunization; F41.9 Anxiety disorder, unspecified; F32.A Depression, unspecified; Z79.899 Other long term (current) drug therapy
CPT/HCPCS: 70450; 72125; 73130; 73562; 91300; 99285

== ENCOUNTER → 2021-09-04 | Outpatient (CLI) | payer MEDICAID, SELFPAY | END | disposition home or self-care (01) | LOC: LAB 16:19 | PROVIDERS: PCP Family Medicine; Visit Provider Obstetrics & Gynecology | DX: N92.6 Irregular menstruation, unspecified (principal) | CPT/HCPCS: 36415; 84702 ==

== ENCOUNTER → 2021-09-06 | Outpatient (CLI) | payer MEDICAID, SELFPAY | END | disposition home or self-care (01) | LOC: LAB 12:28 | PROVIDERS: PCP Family Medicine; Visit Provider Obstetrics & Gynecology | DX: N92.6 Irregular menstruation, unspecified (principal) | CPT/HCPCS: 84702 ==

== ENCOUNTER 2021-09-07 07:58 | Emergency (ER) | payer MEDICAID, SELFPAY ==
[2021-09-07 08:00] VITALS: BP 120/77; PULSE 91; RESP 16; TEMP 36.7; O2SAT 99; BMI 39.3
--- NOTE | 2021-09-07 08:22 | US_ITS ---
STUDY: ABDOMINAL ULTRASOUND - RIGHT UPPER QUADRANT REASON FOR VISIT: Female, 21 years old ruq pain TECHNIQUE: Ultrasound evaluation of the right upper quadrant was performed with real-time and static barrios-scale imaging. TECHNICAL QUALITY: Adequate. COMPARISON: None. FINDINGS: Liver: The liver measures 17.6 cm. There is normal echogenicity of the liver. The bile ducts are within normal limits. There is hepatic color flow. The direction of portal flow is hepatopetal. There is no demonstrated mass lesion. Gallbladder: Normal distended gallbladder. The gallbladder wall measures 2 mm. There is a negative sonographic Louise''s sign. There is no pericholecystic fluid. There are no gallstones. Common Bile Duct (C.B.D.): The common bile duct measures 3 mm. Pancreas: Normal size of the head, body and tail of the pancreas. There is normal echogenicity of the pancreas. There is no demonstrated pancreatic mass or cyst. Right Kidney: Normal size of the right kidney. The right kidney measures 11.6 cm. Normal renal cortex. The right cortex measures 1.8 cm. There is no demonstrated renal mass or cyst. There is no right hydronephrosis. US/Gallbladder IMPRESSION: Normal right upper quadrant ultrasound examination. Electronically Signed: Eusebio Nathan MD at 11:09 EDT ,
--- NOTE | 2021-09-07 08:24 | US_ITS ---
STUDY: FIRST TRIMESTER OBSTETRICAL ULTRASOUND REASON FOR EXAM: Female, 21 years old pain RT SIDED PAIN- LMP UNKNOWN HCG 77,975 LMP: TECHNIQUE: Transvaginal TECHNICAL QUALITY: Adequate. PRIOR ULTRASOUND: None. FINDINGS: There is visualization of a single gestational sac in a normal intrauterine position. The mean sac diameter (MSD) measures 5 mm, indicating an estimated gestational age (EGA) of 7 weeks, 5 days. The gestational sac shape is within normal limits. There is a visualized yolk sac. The yolk sac measures millimeters. The placenta is non-visualized. There is a small hypoechoic area adjacent to the gestational sac consistent with a small subchorionic hemorrhage (implantation bleed). There is visualization of a live embryo. The crown-rump length (CRL) measures 14 mm, indicating an estimated gestational age (EGA) of 7 weeks, 5 days. There is demonstrated cardiac activity with a heart rate of 142 bpm. The estimated gestation age (EGA) by US is 7 weeks, 5 days. The estimated date of delivery (JAYASHREE) by US is 04/21/2022. The uterus measures 9.9 x 6.8 x 5.8 cm. There is no demonstrated uterine fibroid. The cervix is closed. The right ovary measures 3.4 x 2.2 x 2.1 cm. There is no right ovarian cyst. There is no visualized right adnexal mass or complex lesion. The left ovary is not visualized. There is no fluid in the cul de sac. US/Transvaginal w/Preg US IMPRESSION: Living intrauterine of 7 weeks 5 days as described above. Electronically Signed: Eusebio Nathan MD at 11:04 EDT ,
--- NOTE | 2021-09-07 08:24 | EX.ED.DYSGE1 ---
HPI History of Present Illness Chief Complaint: Abd Pain Informant: patient and parent Narrative Narrative: G3, P1 positive test last week unknown last menstrual period present 2-day history of waxing waning right upper quadrant abdominal pain with nausea. Sometimes worsen with food. No fevers. No urinary symptoms. She had a repeat quant yesterday here unknown results. Has not not seen OB. However does see Dr. Thai Graves. No abdominal surgery history. No history of known gallbladder disease. Prior similar symptoms: No PFSH PFSH Medical History Amenorrhea Anxiety and depression asthma sports induced Chest pain Easy bruising Epigastric pain GERD (gastroesophageal reflux disease) Home Medications trazodone 50 mg tablet 50 mg PO QHS PRN #90 tab 05/01/19 [Rx Last Taken Unknown] buspirone 7.5 mg tablet 7.5 mg PO BID #60 tab 11/12/20 [Rx Last Taken Unknown] L norgest/E estradiol-E estrad 0.15 mg-30 mcg (84)/10 mcg(7) tabs,3mos 1 tab PO DAILY #91 tab 01/27/21 [Rx Last Taken Unknown] dexamethasone 6 mg tablet 6 mg PO DAILY #5 tab 04/14/21 [Rx Last Taken Unknown] doxylamine-pyridoxine (vit B6) [Diclegis] 1 tab PO QHS #30 tab 09/07/21 [Rx Last Taken Unknown] Allergy/AdvReac Type Severity Reaction Status Date / Time guava Allergy Mild Hives Verified 09/07/21 08:01 pomegranate Allergy Mild Hives Verified 09/07/21 08:01 dragonfruit Allergy Mild difficulty Uncoded 09/07/21 08:01 breathing Family History Mother Cancer non hodgkins lymphoma Father Hypertension Surgical History H/O: knee surgery Social History Smoking Status: Never smoker alcohol intake: never details: social substance use type: does not use frequency: 1-2 times per week seatbelt use: always do you feel safe at home: Yes additional social history: Eric ROS ROS ED Constitutional Constitutional ED: Denies chills, fever(s) or sweats Eyes Eyes: Denies change in vision ENT ENT ED: Denies dysphagia or sore throat Cardiovascular Cardiovascular: Denies chest pain, leg edema, palpitations or racing heartbeat Respiratory/Chest Respiratory/Chest: Denies cough, dyspnea or dyspnea on exertion Gastrointestinal Gastrointestinal: Reports abdominal pain and nausea; Denies diarrhea or vomiting Genitourinary Genitourinary ED: Denies dysuria, hematuria or urinary frequency Musculoskeletal Musculoskeletal: Denies back pain, extremity pain or neck pain Integumentary Denies rash or wounds Neurologic Neurologic: Denies headache(s), paresthesias or weakness EXAM Physical Exam Const Vital Signs: 09/07/21 08:00 09/07/21 10:59 Temperature 98.0 F Temperature Source Temporal Pulse Rate 91 Respiratory Rate 16 Blood Pressure 120/77 115/61 Blood Pressure Mean 91 79 Pulse Ox 99 Oxygen Delivery Method Room Air Positive well nourished and well developed General Appearance ED: well developed and NAD HEENT Reports moist mucous membranes normocephalic and atraumatic Eyes PERRL, EOMs intact bilaterally and conjunctivae normal General Eye ED: Yes normal appearance of both eyes Neck no lymphadenopathy and supple General: Negative for tenderness Chest Wall Chest: Negative for tenderness Resp normal respiratory effort and normal air movement Effort and Inspection: symmetric chest movement; Negative for respiratory distress Cardio regular rate, regular rhythm and no murmurs Peripheral Pulses: pulses 2+ throughout GI normal to inspection, nondistended, normoactive bowel sounds GI Narrative: Mild right upper quadrant tenderness. No guarding or rebound. Palpation: Negative for guarding or rebound tenderness present Back/Spine no CVA tenderness and no thoracic nor lumbar tenderness Extremity normal to inspection General Extremety ED: Negative for edema or tenderness General Extremity: Negative for edema Neuro oriented x3 and no sensory deficits noted Sensorium / Orientation: awake and alert Skin no rashes or lesions noted and no wounds MDM MDM MDM Narrative Medical decision making narrative: Reviewed labs she had a quant level went from 60,000 up to 78,000 yesterday. We will obtain abdominal labs right upper quadrant ultrasound on the transvaginal ultrasound for evaluation of her . She will be given fluids and Reglan for her nausea. Symptoms improved with Reglan she is able tolerate oral fluids. Abdominal labs all normal. Ultrasound gallbladder was normal with a normal common bile duct. Pelvic ultrasound noted 7-week 5-day intrauterine gestation heart tones of 142. Information updated patient and mother. They will follow-up with OB as an outpatient. She is provided prescription for Diclegis just for morning sickness. I discussed monitoring for biliary colic with specific foods if it recurs. All questions answered. Lab Data Attestation: I reviewed the patient's lab results. Labs: Laboratory Results - last 24 hr 09/07/21 09/07/21 09/07/21 08:30 08:30 09:00 WBC 6.5 RBC 3.79 L Hgb 11.2 L Hct 33.9 L MCV 89.4 MCH 29.6 MCHC 33.0 RDW Std Deviation 42.4 RDW Coeff of Dedra 13.0 Plt Count 207 MPV 8.7 Immature Gran % (Auto) 0.300 Neut % (Auto) 62.7 Lymph % (Auto) 28.0 [place] % (Auto) 7.0 Eos % (Auto) 1.5 Baso % (Auto) 0.5 Absolute Neuts (auto) 4.1 Absolute Lymphs (auto) 1.81 Nucleated RBC % 0 Sodium 137 Potassium 3.9 Chloride 107 Carbon Dioxide 26.0 Anion Gap 4 L BUN 10 Creatinine 0.59 Estim Creat Clear Calc 118.29 Est GFR (MDRD) Af Amer 162 Est GFR (MDRD) Non-Af 134 BUN/Creatinine Ratio 16.9 Glucose 85 Calcium 8.7 Total Bilirubin 0.30 Direct Bilirubin 0.09 AST 11 L ALT 16 Alkaline Phosphatase 72 Total Protein 6.4 Albumin 2.8 L Globulin 3.6 Lipase 84 Urine Color Yellow Urine Clarity Clear Urine pH 7.0 Ur Specific [place] 1.010 Urine Protein Negative Urine Glucose (UA) Normal Urine Ketones Negative Urine Occult Blood Negative Urine Nitrite Negative Urine Bilirubin Negative Urine Urobilinogen Normal Ur Leukocyte Esterase Negative Urine RBC 0 SEEN Urine WBC 0 SEEN Ur Squamous Epith Cells 0-5 SEEN Urine Bacteria 0 SEEN Urine Mucus 0 SEEN Radiography Diagnostic Testing: Clinical Impression(s) from Imaging Studies Gallbladder Ultrasound 09/07/21 08:22 IMPRESSION: Normal right upper quadrant ultrasound examination. Electronically Signed: Eusebio Nathan MD at 11:09 EDT , Obstetrics Ultrasound 09/07/21 08:24 IMPRESSION: Living intrauterine of 7 weeks 5 days as described above. Electronically Signed: Eusebio Nathan MD at 11:04 EDT Reading Location ID and State: [id number] Tel , Service support , Discharge Plan Triage Chief Complaint: Abd Pain ED Provider: Omar Rodriguez Dx/Rx/DC Orders Clinical Impression: First trimester , Nausea/vomiting in , Abdominal pain Instructions: Abdominal Pain, Nausea Vomit Control, First Trimester Prescriptions: New doxylamine-pyridoxine (vit B6) [Diclegis] 10-10 mg tablet,delayed release (DR/EC) 1 tab PO QHS Qty: 30 RF: 0 No Action trazodone 50 mg tablet 50 mg PO QHS PRN (Reason: insomnia) Qty: 90 RF: 1 L norgest/e.estradiol-e.estrad [Ashlyna] 0.15 mg-30 mcg (84)/10 mcg (7) tablets,dose pack,3 month 1 tab PO DAILY Qty: 91 RF: 4 buspirone 7.5 mg tablet 7.5 mg PO BID Qty: 60 RF: 1 dexamethasone [Decadron] 6 mg tablet 6 mg PO DAILY Qty: 5 RF: 0 Primary Care Provider: Shahbaz Aleman Referrals: Vivien Burgos MD [STAFF PHYSICIAN] - As soon as possible Shahbaz Aleman MD [Primary Care Provider] - Activity Restrictions/Additional Instructions: Normal gallbladder work-up including ultrasound. Transvaginal ultrasound notes a 7-week 5-day heart tones 142. Continue your vitamins. Monitor symptoms. Follow-up with your doctor. Disposition Disposition: Home, Self Care Discharge Date/Time: 09/07/21 11:28
[2021-09-07] MEDS: Metoclopramide 10 MG/2 ML Vial 5 MG IV (08:38)
[2021-09-07] MEDS: 0.9% Normal Saline 1,000 ML 150 ML IV (08:38)
[2021-09-07 08:41] LABS: Absolute Lymphocyte Count 1.81 X10^3/uL (0.83-4.51); Absolute Neutrophil Count 4.1 X10^3/uL (2.0-7.7); Basophil# 0.03 X10^3/uL; Basophil% 0.5 % (0-1); Eosinophils% 1.5 % (0-5); Hematocrit 33.9 % (37-47); Hemoglobin 11.2 g/dL (12.0-15.0); Lymphocyte # 1.81 X10^3/ul (0.83-4.51); Mean Corpuscular Hgb 29.6 pg (27.0-32.0); Mean Corpuscular Volume 89.4 fL (81-99); Mean Platelet Vol. 8.7 fl (6.2-12.0); Monocyte# 0.45 X10^3/uL; NRBC Flagged by Analyzer 0 % (0-5); Neutrophil # 4.06 X10^3/uL (2.7-7.7); Neutrophil % 62.7 % (47-70); Platelet Count 207 K/mm3 (150-450); RBC Distribution Width SD 42.4 fl (35.1-43.9); Red Blood Count 3.79 M/mm3 (4.2-5.4); White Blood Count 6.5 K/mm3 (4.4-11.0)
[2021-09-07 08:59] LABS: AST(SGOT) 11 U/L (15-37); Alanine Aminotransfer ALT/SGPT 16 U/L (13-56); Albumin, Serum 2.8 g/dL (3.2-5.0); Alkaline Phosphatase 72 U/L (45-117); Anion Gap 4 (5-15); BUN 10 mg/dL (7-18); BUN/Creat Ratio 16.9 RATIO (10-20); Bilirubin, Direct 0.09 mg/dL (0.00-0.30); Calcium,Total 8.7 mg/dL (8.5-10.1); Chloride 107 mmol/L (98-107); Creatinine, Serum 0.59 mg/dL (0.55-1.02); EST Glomerular Filtration Rate 134 mL/min (>60); Est Glom Filt Rate - Afr Amer 162 mL/min (>60); Estimated Creatinine Clearance 118.29 ml/min; Globulin 3.6 g/dL (2.2-4.2); Glucose 85 mg/dL (74-106); Lipase 84 U/L (73-393); Potassium 3.9 mmol/L (3.5-5.1); Protein, Total 6.4 g/dL (6.4-8.2); Sodium Level 137 mmol/L (136-145)
[2021-09-07 09:02] LABS: Bacteria 0 SEEN /hpf (None Seen); Mucous, Urine 0 SEEN /hpf (<or=2+); Red Blood Cells-Urine 0 SEEN /hpf (0-5); White Blood Cells 0 SEEN /hpf (0-5)
[2021-09-07 09:07] LABS: Color, Urine Yellow (Yellow); Glucose, Dipstick Normal (Normal); Ketone-Dipstick Negative (Negative); Leukocyte Esterase-Dipstick Negative /ul (Negative); Nitrite-Dipstick Negative (Negative); Occult Blood-Urine Negative /ul (Negative); Protein-Dipstick Negative (Negative); Urine Bilirubin Dipstick Negative (Negative); Urine Clarity Clear (Clear); Urine Urobilinogen Normal (Normal)
[2021-09-07 09:20] LABS: Squamous Epithelial Cells - UA 0-5 SEEN /hpf (5-10)
[2021-09-07 10:59] VITALS: BP 115/61
== END 2021-09-07 11:28 | disposition home or self-care (01) ==
PROVIDERS: Emergency Provider Emergency Medicine; PCP Family Medicine; Visit Provider Emergency Medicine
DX: O26.891 Other specified pregnancy related conditions, first trimester (principal); R10.11 Right upper quadrant pain; R11.2 Nausea with vomiting, unspecified; Z3A.01 Less than 8 weeks gestation of pregnancy; O99.341 Other mental disorders complicating pregnancy, first trimester; F41.9 Anxiety disorder, unspecified; F32.A Depression, unspecified; Z79.899 Other long term (current) drug therapy; Z98.890 Other specified postprocedural states
CPT/HCPCS: 76705; 76817; 80048; 80076; 81001; 83690; 85025; 96361; 96374; 97110; 99283; J7030; A4216

== ENCOUNTER → 2021-09-11 | Outpatient (CLI) | payer MEDICAID, SELFPAY ==
[2021-09-10 14:32] LABS: Amphetamine Urine VISTA NEGATIVE (<1000 ng/mL); Barbiturate Urine VISTA NEGATIVE (< 200 ng/mL); Benzodiazepine Urine VISTA NEGATIVE (< 200 ng/mL); Cocaine Urine VISTA NEGATIVE (< 300 ng/mL); Ecstacy Urine VISTA NEGATIVE (< 500 ng/mL); Methadone Urine VISTA NEGATIVE (< 300 ng/mL); PCP Urine VISTA NEGATIVE (< 25 ng/mL); THC Urine VISTA NEGATIVE (< 50 ng/mL); Vista UDS pH Range 7
[2021-09-14 02:07] LABS: Chlamydia By Nucleic Acid AMP Negative (Negative)
[2021-09-14 16:45] LABS: Gonococcus By Nucleic Acid AMP Negative (Negative)
== END | disposition home or self-care (01) ==
LOC: LABSPEC 09:21
PROVIDERS: PCP Family Medicine; Visit Provider Obstetrics & Gynecology
DX: Z34.90 Encounter for supervision of normal pregnancy, unspecified, unspecified trimester (principal)
CPT/HCPCS: 80307; 87086; 87088; 87491; 87591

== ENCOUNTER → 2021-10-01 | Outpatient (CLI) | payer MEDICAID, SELFPAY ==
[2021-10-01 11:09] LABS: Absolute Lymphocyte Count 1.99 X10^3/uL (0.83-4.51); Absolute Neutrophil Count 5.3 X10^3/uL (2.0-7.7); Basophil# 0.02 X10^3/uL; Basophil% 0.3 % (0-1); Eosinophil# 0.06 X10^3/uL; Eosinophils% 0.8 % (0-5); Hematocrit 37.5 % (37-47); Hemoglobin 12.5 g/dL (12.0-15.0); Lymphocyte # 1.99 X10^3/ul (0.83-4.51); Lymphocyte % 25.5 % (19-41); Mean Corp Hgb Conc 33.3 g/dL (32-36); Mean Corpuscular Hgb 29.4 pg (27.0-32.0); Mean Corpuscular Volume 88.2 fL (81-99); Mean Platelet Vol. 8.7 fl (6.2-12.0); Monocyte# 0.42 X10^3/uL; Monocyte% 5.4 % (0-10); NRBC Flagged by Analyzer 0 % (0-5); Neutrophil # 5.28 X10^3/uL (2.7-7.7); Neutrophil % 67.6 % (47-70); Platelet Count 209 K/mm3 (150-450); RBC Distribution Width CV 12.6 % (11.6-14.6); RBC Distribution Width SD 40.5 fl (35.1-43.9); Red Blood Count 4.25 M/mm3 (4.2-5.4); White Blood Count 7.8 K/mm3 (4.4-11.0)
[2021-10-01 11:25] LABS: Glucose Challenge Gest 1H 50g 102 mg/dL (70-140)
[2021-10-01 12:12] LABS: HIV - WCH Non-Reactive (Nonreactive); Hepatitis B Surface Antigen Non-Reactive (Nonreactive); Hepatitis C Antibody Non-Reactive (Nonreactive); Rubella IgG Reactive (Nonreactive); Syphilis Antibodies Non-reactive
[2021-10-01 16:03] LABS: NATERA MAILED SPECIMEN
== END | disposition home or self-care (01) ==
PROVIDERS: PCP Family Medicine; Referring Provider Obstetrics & Gynecology; Visit Provider Obstetrics & Gynecology
DX: Z34.81 Encounter for supervision of other normal pregnancy, first trimester (principal)
CPT/HCPCS: 36415; 82950; 85025; 86703; 86762; 86780; 86803; 86850; 86900; 86901; 87340

== ENCOUNTER 2021-10-23 21:16 | Emergency (ER) | payer MEDICAID, SELFPAY ==
[2021-10-23 21:16] VITALS: BP 97/62; PULSE 130; RESP 15; TEMP 36.8; O2SAT 100; BMI 39.6
--- NOTE | 2021-10-23 22:02 | NURSING ---
attempted to do heart beat. MD aware not able to locate.
--- NOTE | 2021-10-23 22:03 | US_ITS ---
EXAM: US ABDOMEN LIMITED, RIGHT UPPER QUADRANT CLINICAL INDICATION: RUQ pain TECHNIQUE: Real-time ultrasound of the right upper quadrant with image documentation. This report was created using [employer] report [employer] technology. COMPARISON: None. FINDINGS: LIVER: Unremarkable. There is normal echotexture. No focal hepatic lesion. No intrahepatic biliary ductal dilation. GALLBLADDER: Unremarkable. No shadowing gallstone. No gallbladder wall thickening is demonstrated. No pericholecystic fluid. Negative sonographic Louise''s sign. COMMON BILE DUCT: Unremarkable as visualized. The proximal common bile duct is within normal limits for the patient''s age. PANCREAS: Unremarkable as visualized. No focal abnormality is demonstrated in the pancreas. No pancreatic ductal dilatation. RIGHT KIDNEY: Unremarkable. There is no hydronephrosis. No shadowing calculus. No focal lesion or perinephric collection is demonstrated. US/Gallbladder IMPRESSION: Normal right upper quadrant ultrasound. Electronically Signed: Joaquín Cortes MD at 23:26 EDT ,
[2021-10-23] MEDS: Ondansetron 4 MG/2 ML Vial IV (22:15)
[2021-10-23] MEDS: HYDROmorphone 1 MG/ML Syringe IV (22:15)
[2021-10-23] MEDS: 0.9% Normal Saline 1,000 ML 999 ML IV ×2 (22:16→23:06)
--- NOTE | 2021-10-23 22:16 | US_ITS ---
EXAM: US , LIMITED CLINICAL INDICATION: . well-being. TECHNIQUE: Real-time limited ultrasound of the maternal uterus with image documentation. This report was created using [employer] report generation technology. COMPARISON: None. FINDINGS: FETUS: Single intrauterine gestational sac. HEART RATE: cardiac activity is seen at 147 bpm. PLACENTA: Placenta is posterior without evidence of placenta previa. AMNIOTIC FLUID: Amniotic fluid deepest vertical pocket is 3.7 cm. CERVIX: Cervical length is 3.8 cm. US/OB Limited (No Biometrics) IMPRESSION: Single live intrauterine . No specific abnormality identified. Electronically Signed: Joaquín Cortes MD at 23:45 EDT ,
--- NOTE | 2021-10-23 22:29 | EDS_ITS ---
HPI History of Present Illness Chief Complaint: Nausea/Vomiting Narrative Narrative: Patient is a female with 1 spontaneous miscarriage who is approximately 14 weeks . She states over the past 2 days she has been noticing increasing upper abdominal pain with bouts of nausea and vomiting. She states is to the point now where she cannot even hold down water and therefore has not been eating or drinking today. She states that there has been no vaginal bleeding or discharge. She denies any fevers chills or dysuria. She states secondary to concern for dehydration as well as the worsening pain she presents for evaluation [facility] Medical History Amenorrhea Anxiety and depression asthma sports induced Chest pain Easy bruising Epigastric pain GERD (gastroesophageal reflux disease) Home Medications vitamin#30 30 mg iron-10 mg iron-folic acid 1 mg-omg3 capsule 1 cap PO DAILY 09/10/21 [History Last Taken Unknown] ondansetron HCl 4 mg tablet 4 mg PO Q8H PRN nausea and vomiting #60 tabs 10/23/21 [Rx Last Taken Unknown] Allergy/AdvReac Type Severity Reaction Status Date / Time guava Allergy Mild Hives Verified 10/23/21 21:21 pomegranate Allergy Mild Hives Verified 10/23/21 21:21 dragonfruit Allergy Mild difficulty Uncoded 09/07/21 08:01 breathing Family History Mother Cancer non hodgkins lymphoma Father Hypertension Surgical History H/O: knee surgery Social History Smoking Status: Never smoker alcohol intake: never details: social substance use type: does not use frequency: 1-2 times per week seatbelt use: always do you feel safe at home: Yes additional social history: Eric [place] ED Constitutional Constitutional ED: Denies chills or fever(s) ENT ENT ED: Denies sore throat Cardiovascular Cardiovascular: Denies chest pain Respiratory/Chest Respiratory/Chest: Denies cough or dyspnea Gastrointestinal Gastrointestinal: Reports abdominal pain, nausea and vomiting; Denies diarrhea Genitourinary Genitourinary ED: Denies dysuria or hematuria Musculoskeletal Musculoskeletal: Denies myalgias Integumentary Denies rash Neurologic Neurologic: Denies headache(s) Hematologic/Lymphatic Hematologic/Lymphatic: Reports easy bruising; Denies easy bleeding EXAM Physical Exam Const Vital Signs: 10/23/21 21:16 10/24/21 00:36 Temperature 98.2 F Temperature Source Temporal Pulse Rate 130 H 90 Respiratory Rate 15 18 Blood Pressure 97/62 102/57 L Blood Pressure Mean 73 Pulse Ox 100 97 Oxygen Delivery Method Room Air Positive well nourished, well developed and obese General Appearance ED: well developed Nutritional Appearance: obese HEENT Reports dry mucous membranes Mouth ED: Yes dry mucous membranes Mouth: dry mucous membranes Eyes PERRL and EOMs intact bilaterally General Eye ED: Negative for scleral icterus Neck supple Resp normal respiratory effort and clear to auscultation bilaterally Cardio regular rhythm Rate: tachycardic GI non-distended GI Narrative: Abdomen is obese soft and nondistended with hypoactive bowel sound. There is pain with palpation in the midepigastric and right upper quadrant region without voluntary guarding or rigidity. No pulsatile mass Auscultation: hyperactive bowel sounds Palpation: soft Back/Spine no CVA tenderness Extremity normal to inspection Neuro oriented x3 and CN's II-XII intact bilaterally Sensorium / Orientation: alert Psych mental status grossly normal Skin no rashes or lesions noted MDM MDM MDM Narrative Medical decision making narrative: Patient presented to the ER with stable vitals. She had pain greatest in the midepigastric and right upper quadrant concerning for possible pancreatitis or gallbladder dysfunction. Basic blood work was obtained which revealed no acute findings. She did have +2 bacteria in her urine but it was grossly contaminated and patient does not have any urinary symptoms and therefore do not feel there is need for antibiotics. The ultrasound of the gallbladder as well as the u terus shows no acute finding. The fetus is within the uterus and has a normal heartbeat. After treatment in the ER patient reported feeling better and had no further bouts of vomiting. Therefore at this time with improvement of symptoms and negative work-up patient is safe for. Lab Data Attestation: I reviewed the patient's lab results. Labs: Laboratory Results - last 24 hr 10/23/21 10/23/21 10/23/21 22:20 22:20 22:20 WBC 8.0 RBC 4.10 L Hgb 12.3 Hct 35.2 L MCV 85.9 MCH 30.0 MCHC 34.9 RDW Std Deviation 39.1 RDW Coeff of Dedra 12.6 Plt Count 170 MPV 9.0 Immature Gran % (Auto) 0.300 Neut % (Auto) 88.2 H Lymph % (Auto) 7.3 L [place] % (Auto) 3.9 Eos % (Auto) 0.0 Baso % (Auto) 0.3 Absolute Neuts (auto) 7.1 Absolute Lymphs (auto) 0.58 L Nucleated RBC % 0 Differential Comment SEE COMMENT Platelet Estimate ADEQUATE RBC Morphology NORM C+C Anisocytosis RARE Sodium 136 Potassium 3.9 Chloride 106 Carbon Dioxide 22.0 Anion Gap 8 BUN 10 Creatinine 0.65 Estim Creat Clear Calc 107.37 Est GFR (MDRD) Af Amer 146 Est GFR (MDRD) Non-Af 121 BUN/Creatinine Ratio 15.4 Glucose 93 Lactic Acid 1.5 Calcium 8.5 Magnesium 1.7 Total Bilirubin 0.40 Direct Bilirubin 0.08 AST 15 ALT 14 Alkaline Phosphatase 82 Total Protein 6.5 Albumin 2.8 L Globulin 3.7 Lipase 97 Urine Color Urine Clarity Urine pH Ur Specific [place] Urine Protein Urine Glucose (UA) Urine Ketones Urine Occult Blood Urine Nitrite Urine Bilirubin Urine Urobilinogen Ur Leukocyte Esterase Urine RBC Urine WBC Ur Squamous Epith Cells Urine Bacteria Urine Mucus 10/23/21 22:20 WBC RBC Hgb Hct MCV MCH MCHC RDW Std Deviation RDW Coeff of [place] Plt Count MPV Immature Gran % (Auto) Neut % (Auto) Lymph % (Auto) [place] % (Auto) Eos % (Auto) Baso % (Auto) Absolute Neuts (auto) Absolute Lymphs (auto) Nucleated RBC % Differential Comment Platelet Estimate RBC Morphology Anisocytosis Sodium Potassium Chloride Carbon Dioxide Anion Gap BUN Creatinine Estim Creat Clear Calc Est GFR (MDRD) Af Amer Est GFR (MDRD) Non-Af BUN/Creatinine Ratio Glucose Lactic Acid Calcium Magnesium Total Bilirubin Direct Bilirubin AST ALT Alkaline Phosphatase Total Protein Albumin Globulin Lipase Urine Color Yellow Urine Clarity Sl. Cloudy Urine pH 6.0 Ur Specific [place] 1.020 Urine Protein 30 H Urine Glucose (UA) Normal Urine Ketones 150 A* Urine Occult Blood Negative Urine Nitrite Negative Urine Bilirubin 1 H Urine Urobilinogen Normal Ur Leukocyte Esterase 500 H Urine RBC 0 SEEN Urine WBC 5-10 SEEN Ur Squamous Epith Cells 10-25 SEEN Urine Bacteria 2+ Urine Mucus 0 SEEN Radiography Diagnostic Testing: Clinical Impression(s) from Imaging Studies Gallbladder Ultrasound 10/23/21 22:03 IMPRESSION: Normal right upper quadrant ultrasound. Electronically Signed: Joaquín Cortes MD at 23:26 EDT , Obstetrics Ultrasound 10/23/21 22:16 IMPRESSION: Single live intrauterine . No specific abnormality identified. Electronically Signed: Joaquín Cortes MD at 23:45 EDT , Discharge Plan Triage Chief Complaint: Nausea/Vomiting ED Provider: Sotero Plasencia Dx/Rx/DC Orders Clinical Impression: Nausea & vomiting, Dehydration, Abdominal pain affecting Instructions: Dehydration, ED Gastroenteritis, Viral (Adult) Prescriptions: No Action PNV #[id number] 30 mg iron-10 mg iron-1 mg capsule 1 cap PO DAILY ondansetron HCl 4 mg tablet 4 mg PO Q8H PRN (Reason: nausea and vomiting) Qty: 60 2RF Primary Care Provider: Shahbaz Aleman Referrals: Shahbaz Aleman MD [Primary Care Provider] - Disposition Disposition: Home, Self Care Discharge Date/Time: 10/24/21 00:40
[2021-10-23 22:31] LABS: Mucous, Urine 0 SEEN /hpf (<or=2+); Red Blood Cells-Urine 0 SEEN /hpf (0-5)
[2021-10-23 22:38] LABS: Absolute Lymphocyte Count 0.58 X10^3/uL (0.83-4.51); Absolute Neutrophil Count 7.1 X10^3/uL (2.0-7.7); Basophil# 0.02 X10^3/uL; Basophil% 0.3 % (0-1); Hematocrit 35.2 % (37-47); Hemoglobin 12.3 g/dL (12.0-15.0); Lymphocyte # 0.58 X10^3/ul (0.83-4.51); Lymphocyte % 7.3 % (19-41); Mean Corp Hgb Conc 34.9 g/dL (32-36); Mean Corpuscular Volume 85.9 fL (81-99); Monocyte# 0.31 X10^3/uL; Monocyte% 3.9 % (0-10); NRBC Flagged by Analyzer 0 % (0-5); Neutrophil # 7.06 X10^3/uL (2.7-7.7); Neutrophil % 88.2 % (47-70); POSITIVE DIFFERENTIAL YES; Platelet Count 170 K/mm3 (150-450); RBC Distribution Width CV 12.6 % (11.6-14.6); RBC Distribution Width SD 39.1 fl (35.1-43.9)
[2021-10-23 22:41] LABS: Differential Indicated SCAN CRITERIA MET
[2021-10-23 22:52] LABS: Color, Urine Yellow (Yellow); Glucose, Dipstick Normal (Normal); Leukocyte Esterase-Dipstick 500 /ul (Negative); Nitrite-Dipstick Negative (Negative); Occult Blood-Urine Negative /ul (Negative); Protein-Dipstick 30 mg/dl (Negative); Urine Clarity Sl. Cloudy (Clear); Urine Urobilinogen Normal (Normal)
[2021-10-23 22:53] LABS: Ketone-Dipstick 150 mg/dl (Negative); Urine Bilirubin Dipstick 1 mg/dL (Negative)
[2021-10-23 22:58] LABS: Anisocytosis RARE; Platelet Estimate ADEQUATE (ADEQ); Red Cell Morphology NORM C+C NORMAL (NORM C&C)
[2021-10-23 23:04] LABS: AST(SGOT) 15 U/L (15-37); Alanine Aminotransfer ALT/SGPT 14 U/L (13-56); Albumin, Serum 2.8 g/dL (3.2-5.0); Alkaline Phosphatase 82 U/L (45-117); Anion Gap 8 (5-15); BUN 10 mg/dL (7-18); BUN/Creat Ratio 15.4 RATIO (10-20); Bilirubin, Direct 0.08 mg/dL (0.00-0.30); Calcium,Total 8.5 mg/dL (8.5-10.1); Chloride 106 mmol/L (98-107); Creatinine, Serum 0.65 mg/dL (0.55-1.02); EST Glomerular Filtration Rate 121 mL/min (>60); Est Glom Filt Rate - Afr Amer 146 mL/min (>60); Estimated Creatinine Clearance 107.37 ml/min; Globulin 3.7 g/dL (2.2-4.2); Glucose 93 mg/dL (74-106); Lactic Acid 1.5 mmol/L (0.4-1.9); Lipase 97 U/L (73-393); Magnesium 1.7 mg/dL (1.6-2.6); Potassium 3.9 mmol/L (3.5-5.1); Protein, Total 6.5 g/dL (6.4-8.2); Sodium Level 136 mmol/L (136-145)
[2021-10-23 23:10] LABS: Bacteria 2+ /hpf (None Seen); Squamous Epithelial Cells - UA 10-25 SEEN /hpf (5-10); White Blood Cells 5-10 SEEN /hpf (0-5)
[2021-10-24 00:36] VITALS: BP 102/57; PULSE 90; RESP 18; O2SAT 97
== END 2021-10-24 00:40 | disposition home or self-care (01) ==
PROVIDERS: Emergency Provider Emergency Medicine; PCP Family Medicine; Visit Provider Emergency Medicine
DX: O98.812 Other maternal infectious and parasitic diseases complicating pregnancy, second trimester (principal); A08.4 Viral intestinal infection, unspecified; O99.891 Other specified diseases and conditions complicating pregnancy; O99.512 Diseases of the respiratory system complicating pregnancy, second trimester; O99.342 Other mental disorders complicating pregnancy, second trimester; J45.998 Other asthma; E86.0 Dehydration; F41.9 Anxiety disorder, unspecified; Z3A.14 14 weeks gestation of pregnancy; Z79.899 Other long term (current) drug therapy
CPT/HCPCS: 76705; 76815; 80048; 80076; 81001; 83605; 83690; 83735; 85025; 96361; 96374; 96375; 99283; J7030; A4216; J2405

== ENCOUNTER 2021-11-16 11:42 | Emergency (ER) | payer MEDICAID, SELFPAY ==
[2021-11-16 11:43] VITALS: BP 110/83; PULSE 102; RESP 16; TEMP 36.2; O2SAT 100; BMI 39.6
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
--- NOTE | 2021-11-16 11:59 | VDLE_ITS ---
Reason For Study: swelling RIGHT GSV is normal. CFV is compressible, spontaneous, phasic, competent and demonstrates normal augmentation. FV is compressible, spontaneous, phasic, competent and demonstrates normal augmentation. POP V is compressible, spontaneous, phasic, competent and demonstrates normal augmentation. T/P Trunk is compressible. PTV is compressible. RT PerV is compressible. Procedure This is a venous duplex using B-mode, color flow and spectral Doppler. Exam performed portable in ED. The exam was abbreviated due to the COVID 19 protocol. The exam was diagnostic. A preliminary report was called and/or faxed to Dr. Elias. VL/Venous Duplex US, Unilateral Interpretation Summary Deep veins of the right lower extremity are patent and compressible segmentally . There is no evidence of right lower extremity deep vein thrombosis. The right great sapheno us vein appears patent and compressible segmentally. Ordering Physician: Duncan Elias Performed By: Caleb Berry RVT
[2021-11-16 13:19] VITALS: RESP 16
== END 2021-11-16 13:20 | disposition home or self-care (01) ==
LOC: ED 12:59
PROVIDERS: Emergency Provider Emergency Medicine; PCP Family Medicine; Visit Provider Emergency Medicine
DX: O99.412 Diseases of the circulatory system complicating pregnancy, second trimester (principal); O99.212 Obesity complicating pregnancy, second trimester; L55.9 Sunburn, unspecified; I89.0 Lymphedema, not elsewhere classified; E66.9 Obesity, unspecified; M79.89 Other specified soft tissue disorders; Z3A.18 18 weeks gestation of pregnancy
CPT/HCPCS: 93971; 99282

== ENCOUNTER → 2021-12-15 | Outpatient (CLI) | payer MEDICAID, SELFPAY | END | disposition home or self-care (01) | LOC: LABSPEC 12-16 06:12 | PROVIDERS: PCP Family Medicine; Visit Provider Nurse Practitioner Women's Health | DX: R30.0 Dysuria (principal) | CPT/HCPCS: 87086; 87088 ==

== ENCOUNTER → 2021-12-24 | Outpatient (CLI) | payer MEDICAID, SELFPAY | END | disposition home or self-care (01) | LOC: LABSPEC 15:01 | PROVIDERS: PCP Family Medicine; Referring Provider Obstetrics & Gynecology; Visit Provider Obstetrics & Gynecology | DX: O23.40 Unspecified infection of urinary tract in pregnancy, unspecified trimester (principal) | CPT/HCPCS: 87086; 87088 ==

== ENCOUNTER 2022-01-13 09:30 | Outpatient (RCR) | payer MEDICAID, SELFPAY ==
--- NOTE | 2021-08-19 08:01 | HP.PTEVAL_ITS ---
Patient's Visit Information CAMERON CHÁVEZ is a 21 year old F referred to Physical Therapy by ALBERTO EVANS with a diagnosis of S/P R knee patellar stab. Date of Evaluation: 08/19/21 Physical Therapist: Enrique Aragon, PT, ATC - Visit Plan Frequency: 2-3x /Week Duration: 4-6 Weeks Plan: Follow protocal in cabinet. 0-70 degrees for the first week, then progress 10 pounds per week after that. CP for pain. - Subjective DOS: 08/06/21. Pt had a patellar stabilization procedure performed at that time. Pt reports she still has a lot of pain at this time. Pt reports the bad pain comes and goes, and notes night time is the worst pain. Pt also notes increased pain with standing, but reports sitting for a while also hurts. Pt reports she is glad the had the surgery at this time because the pre-surgery pain is gone. Pt reports she has been performing ankle pumps and SLR at this time for a HEP. Pt reports her R LE tingles in her toes when she sits down. Pt reports sleep difficulty at this time secondary to pain. Pt is not currently employed. 6/10 pain while sitting here at rest, 9/10 pain at worst (usually at night time secondary to pain). - Pain R knee Pain Intensity (Out of 10): 6 Pain Intensity Range: 9 - Objective Neuro: B LE sensation is WNL to light touch. Observation: sig contusion noted at this time. No signs of infection. ROM: L knee 0-125 degrees, R knee 0-15-55 degrees. MMT: L knee flex= 23, ext= 25 #F; L knee flex and ext are 0#F at this time. Girth at joint line: L knee 43 cm, R knee 49 cm - Balance/Special Test Scores Lower Extremity Functional Score: 12 - Goals Goal 1:: Decrease R knee pain x 50% to aid with sleep Goal Time Frame: 4-6 Weeks Goal 2:: Increase R knee ROM x 50 degrees to aid with restoring a normalized gait pattern Goal Time Frame: 4-6 Weeks Goal 3:: Increase R knee strength x 10#F to aid with IADL's Goal Time Frame: 4-6 Weeks Goal 4:: I with HEP Goal Time Frame: 4-6 Weeks - Rehabilitation Potential Physical Therapy Diagnosis: Pt has R knee pain, weakness, and limited ROM secondary to R knee patellar stab surgery Rehabilitation Potential: Good - Anticipated Interventions Patient/Client Instruction: Educate patient on: Condition, Plan of Care For the Purpose of:: To improve self management Therapeutic Exercise to Include: Strength training, Endurance training, Balance training, Flexibilty training, Gait and locomotor training, Passive ROM, Active ROM, Dynamic Lumbar Stabilization For the Purpose of:: To decrease pain, To increase ROM, To improve muscle performance and motor function Cryotherapy (ice pack, ice massage): Yes For the Purpose of:: To decrease pain Thank you for the opportunity to evaluate your patient. For Medicare and Medicare HMO plans, please review the plan of care and approve it. It will need to be FAXED BACK to us at [phone] for Medicare purposes. For Medicare only, by signing this I certify the plan of care. Please let me know if there are questions or concerns regarding this plan of care. Physician Signature: Date:
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
== END 2022-01-13 12:27 | disposition home or self-care (01) ==
LOC: PT 09:30
PROVIDERS: PCP Family Medicine
DX: Z98.890 Other specified postprocedural states (principal)
CPT/HCPCS: 97110; 97161; 97164

== ENCOUNTER → 2022-01-20 | Outpatient (CLI) | payer MEDICAID, SELFPAY ==
[2022-01-20 13:09] LABS: Absolute Lymphocyte Count 2.25 X10^3/uL (0.83-4.51); Basophil# 0.03 X10^3/uL; Basophil% 0.3 % (0-1); Eosinophil# 0.11 X10^3/uL; Eosinophils% 1.1 % (0-5); Hematocrit 34.1 % (37-47); Hemoglobin 11.1 g/dL (12.0-15.0); Lymphocyte # 2.25 X10^3/ul (0.83-4.51); Lymphocyte % 22.7 % (19-41); Mean Corp Hgb Conc 32.6 g/dL (32-36); Mean Corpuscular Hgb 29.3 pg (27.0-32.0); Mean Platelet Vol. 8.7 fl (6.2-12.0); Monocyte# 0.46 X10^3/uL; Monocyte% 4.6 % (0-10); NRBC Flagged by Analyzer 0 % (0-5); Neutrophil # 7.01 X10^3/uL (2.7-7.7); Neutrophil % 70.6 % (47-70); Platelet Count 153 K/mm3 (150-450); RBC Distribution Width CV 13.8 % (11.6-14.6); RBC Distribution Width SD 45.1 fl (35.1-43.9); Red Blood Count 3.79 M/mm3 (4.2-5.4); White Blood Count 9.9 K/mm3 (4.4-11.0)
[2022-01-20 13:35] LABS: Glucose Challenge Gest 1H 50g 120 mg/dL (70-140)
== END | disposition home or self-care (01) ==
PROVIDERS: PCP Family Medicine; Referring Provider Obstetrics & Gynecology; Visit Provider Obstetrics & Gynecology
DX: O23.40 Unspecified infection of urinary tract in pregnancy, unspecified trimester (principal)
CPT/HCPCS: 36415; 82950; 85025; 87086; 87088

== ENCOUNTER 2022-02-21 20:44 | Emergency (ER) | payer MEDICAID, SELFPAY ==
[2022-02-21 20:46] VITALS: BP 146/71; PULSE 95; RESP 16; TEMP 35.9; O2SAT 96; BMI 45.9
[2022-02-21 20:49] VITALS: BP 146/71; PULSE 95; RESP 16; TEMP 35.9; O2SAT 96
--- NOTE | 2022-02-21 21:30 | EDS_ITS ---
HPI History of Present Illness Chief Complaint: Wound Detail of Chief Complaint: Rash lower abdomen. Informant: patient Onset/Context/Timing Onset: Weeks Context: Gradual Onset Timing: Continuous Current Severity: Mild Maximum Severity: Mild Narrative Narrative: 22-year-old female Ab1 with having a miscarriage. Currently 32 weeks . Due date of April 20. She had a rash in the lower surface of her abdomen. Was seen in urgent care and they prescribed her some type of cream. She thinks it may have been steroid-based. Initially. That may be improved now its worse. Prior similar symptoms: No Recent Illness/Hospitalization: No PFSH PFSH Medical History Amenorrhea Anxiety and depression asthma sports induced Chest pain Easy bruising Epigastric pain GERD (gastroesophageal reflux disease) Home Medications vitamin#30 30 mg iron-10 mg iron-folic acid 1 mg-omg3 capsule 1 cap PO DAILY 09/10/21 [History Last Taken Unknown] ondansetron HCl 4 mg tablet 4 mg PO Q8H PRN nausea and vomiting #60 tabs 10/23/21 [Rx Last Taken Unknown] famotidine 20 mg tablet (Pepcid) 20 mg PO BID #60 tabs 01/25/22 [Rx Last Taken Unknown] clotrimazole 1 % topical cream (Lotrimin AF (clotrimazole)) 1 applic topical TID #30 grams 02/21/22 [Rx Last Taken Unknown] Allergy/AdvReac Type Severity Reaction Status Date / Time guava Allergy Mild Hives Verified 02/16/22 09:57 pomegranate Allergy Mild Hives Verified 02/16/22 09:57 dragonfruit Allergy Mild difficulty Uncoded 12/15/21 10:38 breathing Family History Mother Cancer non hodgkins lymphoma Father Hypertension Surgical History H/O: knee surgery Social History Smoking Status: Never smoker alcohol intake: never details: social substance use type: does not use frequency: 1-2 times per week seatbelt use: always do you feel safe at home: Yes additional social history: Eric ROS ROS ED ROS Narrative Lower abdominal wall skin rash. . Review of Systems ROS Unobtainable: Denies due to encephalopathy Constitutional Constitutional ED: Denies chills or fever(s) Eyes Eyes: Denies blurry vision ENT ENT ED: Denies ear pain Cardiovascular Cardiovascular: Denies chest pain Respiratory/Chest Respiratory/Chest: Denies dyspnea Gastrointestinal Gastrointestinal: Denies abdominal pain Genitourinary Genitourinary ED: Denies dysuria or hematuria Musculoskeletal Musculoskeletal: Denies arthralgias Integumentary Reports rash; Denies abscess or Abrasions Neurologic Neurologic: Denies headache(s) Psychiatric Psychiatric: Denies anxiety Endocrine Endocrinology: Denies cold intolerance Hematologic/Lymphatic Hematologic/Lymphatic: Reports none Allergic/Immunologic Allergic/Immunologic ED: Denies mouth swelling or tongue swelling EXAM Physical Exam Narrative Exam Narrative: Pleasant female no acute distress. Vital signs stable afebrile. H EENT exam normal. Lungs clear. Heart regular rhythm. Abdomen soft nontender normal bowel sounds no peritoneal signs. On the undersurface of her lower abdomen suprapubic area. There is a candidal skin yeast infection. Minimally tender. No abscess. No pus. Otherwise exam unremarkable. Const Vital Signs: 02/21/22 20:46 02/21/22 20:49 Temperature 96.7 F L 96.7 F L Temperature Source Temporal Temporal Pulse Rate 95 95 Respiratory Rate 16 16 Blood Pressure 146/71 H 146/71 H Blood Pressure Mean 96 96 Pulse Ox 96 96 Oxygen Delivery Method Room Air Room Air Positive well nourished, well developed and obese; Negative for cachectic, contractures or unkempt General Appearance ED: well developed and NAD; Negative for unkempt, cachectic, contractures, cyanotic, diaphoretic or pallor Nutritional Appearance: obese; Negative for cachectic HEENT Reports moist mucous membranes; Denies dry mucous membranes Negative for trauma or tenderness Mouth ED: No dry mucous membranes Mouth: No dry mucous membranes Eyes PERRL and EOMs intact bilaterally General Eye ED: Negative for pale conjunctiva or scleral icterus Neck no lymphadenopathy, supple and no JVD General: Negative for tenderness Lymph Lymphatic: Negative for other Chest Wall inspection of chest normal and palpation of chest normal Resp normal respiratory effort and clear to auscultation bilaterally Effort and Inspection: Negative for retractions Auscultation: Negative for rales, rhonchi or wheezes Cardio regular rate, regular rhythm, S1 normal heart sound, S2 normal heart sound and no murmurs Palpation: Negative for palpable S3 Rate: Negative for bradycardia Rhythm: Negative for abnormal rhythm GI normal to inspection, nondistended, normoactive bowel sounds, non-tender, non- distended and no masses GI Narrative: Gravid nontender uterus. Abdomen no peritoneal signs. Rash on the undersurface of the lower abdomen consistent with a yeast infection of the skin. No pus. No abscess. Inspection: Negative for abdominal distention Auscultation: normoactive bowel sounds Palpation: soft; Negative for tender Back/Spine no CVA tenderness General Back: Negative for CVA tenderness Cervical Spine: Negative for cervical spine tenderness Thoracic Spine / Upper Back: Negative for thoracic spinal tenderness Lumbar Spine / Lower Back: Negative for lumbar spinal tenderness Extremity normal to inspection General Extremety ED: Negative for edema or tenderness General Extremity: Negative for edema Neuro oriented x3 and CN's II-XII intact bilaterally Sensorium / Orientation: alert; Negative for orientation impaired, lethargic or stuporous Sensory Exam: No sensory level loss detected Motor Exam: strength 5/5 throughout Psych mental status grossly normal Appearance: Negative for unkempt Attitude: No agitated Mood & Affect: Negative for depressed, anxious or tearful Skin No no rashes or lesions noted and no wounds Skin Narrative: Lower abdominal rash consistent with a yeast infection. General Skin Exam: Negative for elasticity normal, jaundice or pallor Rashes: rashes noted Trauma: Negative for abrasion Wounds: Negative for wounds noted MDM MDM MDM Narrative Medical decision making narrative: Patient with a skin yeast infection. Will be placed on Lotrimin cream. Follow- up as needed. Stop her current cream that she is using. Discharge Plan Triage Chief Complaint: Wound ED Provider: López Hollins Dx/Rx/DC Orders Clinical Impression: Rash, skin, Skin yeast infection, Third trimester Instructions: ED Karis Skin Infection (Adult) Prescriptions: New clotrimazole [Lotrimin AF (clotrimazole)] 1 % cream 1 applic topical TID Qty: 30 0RF No Action PNV #[id number] 30 mg iron-10 mg iron-1 mg capsule 1 cap PO DAILY ondansetron HCl 4 mg tablet 4 mg PO Q8H PRN (Reason: nausea and vomiting) Qty: 60 2RF famotidine [Pepcid] 20 mg tablet 20 mg PO BID Qty: 60 4RF Primary Care Provider: Shahbaz Aleman Referrals: Vivien Burgos MD [Med Staff - Active Staff] - As Needed Shahbaz Aleman MD [Primary Care Provider] - Activity Restrictions/Additional Instructions: Stop the prior cream that you were using. Use the antifungal yeast cream that I am prescribing 2-3 times a day. Keep the area clean and dry it frequently. Disposition Disposition: Home, Self Care
== END 2022-02-21 21:53 | disposition home or self-care (01) ==
PROVIDERS: Emergency Provider Emergency Medicine; PCP Family Medicine; Visit Provider Emergency Medicine
DX: O98.813 Other maternal infectious and parasitic diseases complicating pregnancy, third trimester (principal); R21 Rash and other nonspecific skin eruption; B37.2 Candidiasis of skin and nail; Z3A.32 32 weeks gestation of pregnancy; O99.213 Obesity complicating pregnancy, third trimester
CPT/HCPCS: 99282

== ENCOUNTER → 2022-03-31 | Outpatient (CLI) | payer MEDICAID, SELFPAY | END | disposition home or self-care (01) | LOC: LABSPEC 13:35 | PROVIDERS: PCP Family Medicine; Visit Provider Obstetrics & Gynecology | DX: O09.90 Supervision of high risk pregnancy, unspecified, unspecified trimester (principal) | CPT/HCPCS: 87081 ==

== ENCOUNTER → 2022-04-05 | Outpatient (CLI) | payer MEDICAID, SELFPAY ==
--- NOTE | 2022-04-05 16:12 | US_ITS ---
STUDY: SECOND AND THIRD TRIMESTER OBSTETRICAL ULTRASOUND - LIMITED REASON FOR EXAM: Female, 22 years old obesity in LMP: PRIOR ULTRASOUND: None. TECHNIQUE: Transabdominal TECHNICAL QUALITY: Adequate. FINDINGS: There is a single intrauterine fetus. The fetus is in a cephalic presentation. There is demonstrated cardiac activity with a heart rate of 120 bpm. There is a normal amniotic fluid volume. The largest amniotic fluid pocket measures 5.5 cm. The amniotic fluid index (OMAR) is 15.12 cm. The placenta is posterior and fundal There are Grade 3 placental changes. The cervix was not well visualized BIOMETRY: BPD: 9.34 cm: 38 weeks, 0 days HC: 34.08 cm: 39 weeks, 2 days AC: 33.6 cm: 37 weeks, 4 days FL: 7.07 cm: 36 weeks, 2 days Age by LMP: 37 weeks, 6 days. JAYASHREE by LMP: April 20, 2022. age by prior US: 37 weeks, 6 days. JAYASHREE by prior US: April 20, 2022. age by current US: 37 weeks, 6 days. JAYASHREE by current US: April 20, 2022. Estimated weight: 3202 grams, +/- 480 grams, 49.6 percentile. US/OB Limited With Biometrics IMPRESSION: Viable intrauterine gestation approximately 37-38 weeks gestational age. No significant abnormality Electronically Signed: Last Small MD at 18:28 EST ,
== END | disposition home or self-care (01) ==
LOC: US 16:11
PROVIDERS: PCP Family Medicine; Referring Provider Obstetrics & Gynecology; Visit Provider Obstetrics & Gynecology
DX: O99.213 Obesity complicating pregnancy, third trimester (principal); Z3A.37 37 weeks gestation of pregnancy
CPT/HCPCS: 76816

== ENCOUNTER 2022-04-15 09:35 | Inpatient (IN) | payer MEDICAID, SELFPAY ==
[2022-04-15] VITALS (45 sets, daily range): BP systolic 108–134; BP diastolic 54–79; PULSE 83–196; TEMP 36.3–36.9; O2SAT 97–100; BMI 47.0
[2022-04-15] MEDS: Lactated Ringers 1,000 ML 50 ML IV (10:30)
[2022-04-15] MEDS: Oxytocin 15 Units/NS 250ml 15 UNITS/250 ML IV.SOLN 2 UNITS IV (10:43)
[2022-04-15 10:50] LABS: Absolute Neutrophil Count 7.7 X10^3/uL (2.0-7.7); Basophil# 0.04 X10^3/uL; Basophil% 0.4 % (0-1); Eosinophil# 0.06 X10^3/uL; Eosinophils% 0.6 % (0-5); Hematocrit 34.7 % (37-47); Hemoglobin 11.9 g/dL (12.0-15.0); Lymphocyte % 20.6 % (19-41); Mean Corp Hgb Conc 34.3 g/dL (32-36); Mean Corpuscular Hgb 29.6 pg (27.0-32.0); Mean Corpuscular Volume 86.3 fL (81-99); Mean Platelet Vol. 9.9 fl (6.2-12.0); Monocyte# 0.57 X10^3/uL; Monocyte% 5.3 % (0-10); NRBC Flagged by Analyzer 0 % (0-5); Neutrophil # 7.73 X10^3/uL (2.7-7.7); Neutrophil % 72.4 % (47-70); Platelet Count 157 K/mm3 (150-450); RBC Distribution Width SD 42.9 fl (35.1-43.9); Red Blood Count 4.02 M/mm3 (4.2-5.4); White Blood Count 10.7 K/mm3 (4.4-11.0)
[2022-04-15] MEDS: 0.9% Normal Saline Single 100 ML IV.SOLN. INTRA-UTER (11:36)
--- NOTE | 2022-04-15 13:11 | HP.PCM.OB_ITS ---
HPI - General General Date of Admission: 04/15/22 HPI Narrative CAMERON CHÁVEZ, is a 22 F who presents for IOL elective favorable cervix. Maternal Data Information JAYASHREE Calculator Estimated Delivery Date Method Current WG Current Estimate 04/21/22 Ultrasound #1 39w 1d Other Estimates 03/23/22 LMP (Certain) 43w 2d PFSH PFSH Medical History Amenorrhea Anxiety and depression asthma sports induced Chest pain Easy bruising Epigastric pain GERD (gastroesophageal reflux disease) Home Medications vitamin#30 30 mg iron-10 mg iron-folic acid 1 mg-omg3 capsule 1 cap PO DAILY 09/10/21 [History Last Taken 04/14/22 10:30] famotidine 20 mg tablet (Pepcid) 20 mg PO BID heartburn 04/15/22 [History Last Taken 04/14/22 21:30] Allergy/AdvReac Type Severity Reaction Status Date / Time guava Allergy Mild Hives Verified 04/15/22 10:31 pomegranate Allergy Mild Hives Verified 04/15/22 10:31 dragonfruit Allergy Mild difficulty Uncoded 04/15/22 10:31 breathing Family History Mother Cancer non hodgkins lymphoma Father Hypertension Surgical History H/O: knee surgery Social History Smoking Status: Former smoker alcohol intake: never details: social substance use type: does not use frequency: 1-2 times per week seatbelt use: always do you feel safe at home: Yes additional social history: Eric History 3 Elective abortions Hx Para 1 Spontaneous abortions Hx # Term Pregnancies Ectopic pregnancies Hx # Pregnancies Multiple births # of living children 1 Past Pregnancies Del. Date Name GA/Weeks Outcome Route Bth Weight Gen Labor Lgth Anesthesia Del Locatn Provider FOB 03/27/18 Tripp live - full term Male [facility] Visit Details Expected Delivery Route/Plan Labor Preferences- CB/BF classes: no labor support person: Eric labor intervention preferences: [] pain management options preferred: epidural cut cord/dad catch: yes : no PP control planned: bilat salpingectomy discussed possible routes of delivery and associated risks: [] special requests: [] Plans Covid status:discussed Flu vaccine: discussed Tdap vaccine: given Rhogam: na LARC form signed: yes Problem list reviewed and updated with the most current plan of care details and appropriate orders placed. Relevant counseling for the gestational age provided. Continue routine care and follow up unless otherwise noted in visit notes/problem list details OB Flowsheet Initial Weight: Not Recorded Date -?-?-?-?-?-?-?-?-?-?-?-?- EGA Weight BP Urine Prot -?-?-?-?-?-?-?-?-?-?-?-?- Glucose FHR FuHt Pres Dilation -?-?-?-?-?-?-?-?-?-?-?-?- Effaced St Visit Note 10/01/21 -?-?-?-?-?-?-?-?-?-?-?-?- 11w 1d 98.656 kg 110/78 Negati ve -?-?-?-?-?-?-?-?-?-?-?-?- Negative 171 -?-?-?-?-?-?-?-?-?-?-?-?- JV- CRL today me asuring consistent with established GA (LMP). she did an early gct and labs today. 10/26/21 -?-?-?-?-?-?-?-?-?-?-?-?- 14w 5d 97.976 kg 104/70 Negati ve -?-?-?-?-?-?-?-?-?-?-?-?- Negative 156 -?-?-?-?-?-?-?-?-?-?-?-?- MH-No VB. Seen E D 10/24 for dehydration and epigastric pain that persists. Did not start zofran-enc to take cyclic and also sent Rx pepcid. Anatomy US MF 11/2611/26/21 -?-?-?-?-?-?-?-?-?-?-?-?- 19w 1d 102.965 kg 120/84 Negat ceci -?-?-?-?-?-?-?-?-?-?-?-?- Negative 145 -?-?-?-?-?-?-?-?-?-?-?-?- SM- no vb lof go od fm nor egular ctx. discussed bad sunburn s/p keflex 12/24/21 -?-?-?-?-?-?-?-?-?-?-?-?- 23w 1d 105.914 kg 111/63 -?-?-?-?-?-?-?-?-?-?-?-?- 147 25 -?-?-?-?-?-?-?-?-?-?-?-?- JV- fell of step s a couple of days ago no pain 01/20/22 -?-?-?-?-?-?-?-?-?-?-?-?- 27w 0d 109.316 kg 136/75 Negat ceci -?-?-?-?-?-?-?-?-?-?-?-?- Negative 138 27 -?-?-?-?-?-?-?-?-?-?-?-?- MH-No VB, LOF. Good FM. 28 wk labs, flu and larc. 02/02/22 -?-?-?-?-?-?-?-?-?-?-?-?- 28w 6d 110.677 kg 120/62 Negat ceci -?-?-?-?-?-?-?-?-?-?-?-?- Negative 154 28 -?-?-?-?-?-?-?-?-?-?-?-?- JV- no lof ,vagi nal bleeding. or dec fm 02/16/22 -?-?-?-?-?-?-?-?-?-?-?-?- 30w 6d 112.945 kg 114/65 Negat ceci -?-?-?-?-?-?-?-?-?-?-?-?- Negative 155 32 -?-?-?-?-?-?-?-?-?-?-?-?- JV- no lof, vagi nal bleeding, or dec fm. has small stretch ninoska with a vein coursing under that she is concerned about. reassurance given. title 19 signed today for tubal ligation after delivery. she understands this may be remote from delivery and be laparoscopic due to anesthesia availablility and also obesity. [facility] signed today also. 03/02/22 -?-?-?-?-?-?-?-?-?-?-?-?- 32w 6d 113.852 kg 104/68 Negat ceci -?-?-?-?-?-?-?-?-?-?-?-?- Negative 130 34 -?-?-?-?-?-?-?-?-?-?-?-?- SM- no vb lof go od fm n oregualr ctx 03/15/22 -?-?-?-?-?-?-?-?-?-?-?-?- 34w 5d 115.269 kg 106/68 -?-?-?-?-?-?-?-?-?-?-?-?- 150 36 -?-?-?-?-?-?-?-?-?-?-?-?- LC-no vb,lof,ctx . good FM. concerned with childcare for son. would prefer an elective IOL. 03/22/22 -?-?-?-?-?-?-?-?-?-?-?-?- 35w 5d 116.12 kg 122/74 Negati ve -?-?-?-?-?-?-?-?-?-?-?-?- Negative 141 37 -?-?-?-?-?-?-?-?-?-?-?-?- MH-No VB, LOF. G ood FM. tdap today. 03/31/22 -?-?-?-?-?-?-?-?-?-?-?-?- 37w 0d 117.254 kg 111/72 Negat ceci -?-?-?-?-?-?-?-?-?-?-?-?- Negative 137 38 Cephalic 1 -?-?-?-?-?-?-?-?-?-?-?-?- 70 -3 JV- orderi ng growth scan due to maternal obesity. flu shot and gbs today. no complaints today 04/07/22 -?-?-?-?-?-?-?-?-?-?-?-?- 38w 0d 117.48 kg 122/76 Negati ve -?-?-?-?-?-?-?-?-?-?-?-?- Negative 135 38 2 -?-?-?-?-?-?-?-?-?-?-?-?- 70 -3 LC- growth scan normal. no ctx/lof/vb. good fm. elective IOL scheduled for 04/14 at 7am. 04/15/22 -?-?-?-?-?-?-?-?-?-?-?-?- 39w 1d 116.6 kg 123/59 126/72 119/58 119/64 -?-?-?-?-?-?-?-?-?-?-?-?- -?-?-?-?-?-?-?-?-?-?-?-?- NST FHR Rate Baby A Baseline: 130 Variability:: Moderate Accelerations:: 15 x 15 Decelerations:: None NST Reactive:: Yes FHR Category:: Category I Uterine Activity:: irregular ROS Constitutional Constitutional: Reports systems reviewed and no addt'l complaints, except as documented Eyes Eyes: Denies change in vision ENT HEENT: Reports systems reviewed and no addt'l complaints, except as documented; Denies headache(s) Cardiovascular Cardiovascular: Reports systems reviewed and no addt'l complaints, except as documented; Denies chest pain or dyspnea Respiratory/Chest Respiratory/Chest: Reports systems reviewed and no addt'l complaints, except as documented Gastrointestinal Gastrointestinal: Reports systems reviewed and no addt'l complaints, except as documented; Denies abdominal pain Genitourinary Genitourinary: Reports systems reviewed and no addt'l complaints, except as documented, contractions Details: present (irregular) and movement Details: present; Denies dysuria or genital lesions Musculoskeletal Musculoskeletal: Reports systems reviewed and no addt'l complaints, except as documented Neurologic Neurologic: Reports systems reviewed and no addt'l complaints, except as documented Endocrine Endocrinology: Reports systems reviewed and no addt'l complaints, except as documented Vital Signs Vital Signs Vital Signs: 04/15/22 10:42 04/15/22 10:42 04/15/22 10:42 Temperature Temperature Source Pulse Rate 99 Blood Pressure 123/59 H BP Systolic 123 BP Diastolic 59 Pulse Ox 97 04/15/22 10:43 04/15/22 10:43 04/15/22 10:43 Temperature 98.2 F Temperature Source Temporal Pulse Rate Blood Pressure BP Systolic BP Diastolic Pulse Ox 98 04/15/22 11:41 04/15/22 11:41 04/15/22 11:41 Temperature Temperature Source Pulse Rate 90 99 Blood Pressure 126/72 H BP Systolic 126 BP Diastolic 72 Pulse Ox 04/15/22 11:41 04/15/22 11:41 04/15/22 11:41 Temperature Temperature Source Temporal Pulse Rate Blood Pressure BP Systolic BP Diastolic Pulse Ox 98 97 04/15/22 11:41 04/15/22 12:27 04/15/22 12:27 Temperature 98.1 F Temperature Source Pulse Rate 93 Blood Pressure 119/58 L BP Systolic 119 BP Diastolic 58 Pulse Ox 04/15/22 12:28 04/15/22 12:28 04/15/22 13:09 Temperature 98.4 F Temperature Source Temporal Pulse Rate Blood Pressure 119/64 BP Systolic 119 BP Diastolic 64 Pulse Ox 04/15/22 13:09 Temperature Temperature Source Pulse Rate 106 H Blood Pressure BP Systolic BP Diastolic Pulse Ox Weight Weight: 116.6 kg Body Mass Index (BMI) 47.0 Physical Exam Const alert, oriented x3, no apparent distress and healthy appearing HEENT normocephalic and moist oral mucous membranes Head and Scalp: atraumatic Neck full ROM, no lymphadenopathy, supple and thyroid normal General: trachea midline Lymph Lymphatic: no lymphadenopathy noted Chest inspection of chest normal Resp normal respiratory effort Cardio regular rate GI normal to inspection, nondistended, normoactive bowel sounds, soft to palpation and non-tender Inspection: gravid external exam normal Manual OB Exam: estimated gestational size appropriate, presentation cephalic, dilated, effaced and station Extremity normal to inspection General Extremity: Negative for edema Skin no rashes or lesions noted Neuro no focal motor deficits and deep tendon reflexes 2+ bilaterally Motor Exam: strength 5/5 throughout and clonus absent Psych mental status grossly normal Labs Labs Labs: Blood Type A POSITIVE Antibody Screen NEGATIVE Hct 34.7 % (37-47) L Hgb 11.9 g/dL (12.0-15.0) L Obstetrics US Syphilis Total Ab Non-reactive Rubella IgG Antibody Reactive (Nonreactive) Hep Bs Antigen Non-Reactive (Nonreactive) Chlamydia DNA (KATHARINE) Negative (Negative) Neisseria gonorrhoeae DNA (KATHARINE) Negative (Negative) HIV 1&2 Antibody Non-Reactive (Nonreactive) Glucose 1 Hr 50 gm 120 mg/dL (70-140) Group B Strep DNA Negative (Negative-) Rhogam given: No Assessment & Plan (1) Sterilization consult: COMMENT: desires BTL - discussed 12/24/21 sign title 19 signed 02/16/22 (2) UTI in : COMMENT: Macrobid, culture negative, 12/24/21 sample contaminated Repeat Urine Culture next visit(01/20/22): negative (3) Obesity affecting : COMMENT: 1 tm GCT. BMI 39. encouraged health weight gain (4) : QUALIFIERS: Weeks of gestation: 38 weeks Qualified Code(s): Z3A.38 - 38 weeks gestation of COMMENT: GBS Negative, NIPT low risk, carrier neg. . Physician only.04/07 nl growth EFW 3202 gms +/- 480 gms,49.6%. (5) Supervision of high-risk : COMMENT: PRR JAYASHREE 04/21/22, girl, PC Tripp Eric (Yanely-6) (6) Anxiety during : COMMENT: buspar, encouraged counseling. PLAN: Plan Patient presents IOL, plan management for with fb pit. Pain management: plans epidural. GBS negative. Management of any complications: none I have reviewed the [facility] and made any clinically relevant updates.
[2022-04-15] MEDS: LACTATED RINGERS 500 ML 999 ML IV (14:51)
[2022-04-15] MEDS: fentaNYL-bupivacaine (epidural) 100 ML BAG EPIDURAL (16:43)
[2022-04-15] MEDS: Lactated Ringers 1,000 ML 200 ML IV (18:51)
--- NOTE | 2022-04-15 20:32 | EX.PCM.OBRPT ---
Assessment & Plan (1) Anxiety during : COMMENT: buspar, encouraged counseling. (2) Supervision of high-risk : COMMENT: PRR JAYASHREE 04/21/22, girl, PC Tripp Eric (Yanely-6) (3) Obesity affecting : COMMENT: 1 tm GCT. BMI 39. encouraged health weight gain (4) : QUALIFIERS: Weeks of gestation: 38 weeks Qualified Code(s): Z3A.38 - 38 weeks gestation of COMMENT: GBS Negative, NIPT low risk, carrier neg. . Physician only.04/07 nl growth EFW 3202 gms +/- 480 gms,49.6%. (5) UTI in : COMMENT: Macrobid, culture negative, 12/24/21 sample contaminated Repeat Urine Culture next visit(01/20/22): negative (6) Sterilization consult: COMMENT: desires BTL - discussed 12/24/21 sign title 19 signed 02/16/22 (7) Vaginal delivery: COMMENT: SM 39 IOL elective girl Gissel Maternal Data Information JAYASHREE Calculator Estimated Delivery Date Method Current WG Current Estimate 04/21/22 Ultrasound #1 39w 1d Other Estimates 03/23/22 LMP (Certain) 43w 2d Vaginal Delivery Operative Information Date of Procedure: 04/15/22 Pre-Operative Diagnosis: IOL elective Post-Operative Diagnosis: same Surgery / Procedure Performed: Spontaneous Vaginal Delivery Type of Anesthesia: Epidural Special Medications: none Estimated Blood Loss: 300 Fluids Replaced: crystalloid Findings Description of Procedure: Patient began pushing and delivered the head in the jannet presentation. The head was delivered atraumatically and a loose nuchal cord ?1 was identified and the delivered through without complication. The anterior and posterior shoulders delivered without complication followed by the rest of the and the infant was placed on the maternal abdomen. Delayed cord clamping was employed for approximately 60 seconds. Cord was clamped and cut and gentle traction was applied to the cord and the placenta delivered spontaneously immediately following it was noted to be intact with three-vessel cord. The perineum and vagina were inspected and noted to haev a 1st degree laceration repaired in the usual fashion with 3-0 rapide. EBL was 300. Patient and tolerated delivery well. Presentation: VIRGIL Amniotic Membrane Rupture Type: Artificial Amniotic Fluid Description: Clear Placental Delivery Description: Spontaneous Placenta Disposition: [facility] Cord Vessel Description: 3 Vessels Cord Entanglement: None Delayed Cord Clamping: Yes Post Vaginal Delivery Medications Given After Delivery: IV Pitocin Episiotomy Description: None Laceration: Perineal Extension/lac and 1st degree Complication Complications: None Procedures Urinary/Genital [id number]: [id number] Vaginal Delivery+PP Care([facility])
--- NOTE | 2022-04-15 20:34 | DCINST_ITS ---
Discharge Instructions Diet Discharge Diet: No restrictions Activity Discharge Activity: Return to Normal Activity, May Drive, May Shower and May Take a Tub Bath (in 4 weeks) May resume sexual activity in: 6-8 weeks (after seen by OB provider) Weight Bearing Status: Full weight bearing Lifting Restrictions: none Dressing / Incision Call your doctor if you observe: Fever of 101 or Higher, Inability to urinate, Using more than 1 pad per hour (for more than 2 hours in a row or more), Shortness of breath, Dizziness, Chest pain and - (headache not controlled with tylenol, change in vision) Follow Up Care When: in 6 weeks for visit, call the office to make the appointment. If you had elevated blood pressures call the office to be seen within 1 week. Test Results: Test results from this visit will be discussed in further detail at your follow- up appointment, if applicable. Discharge Plan Admission Admit Date/Time: 04/15/22 09:35 Attending Provider: Vivien Burgos Primary Care Provider: Shahbaz Aleman Discharge Orders/Prescriptions Prescriptions: No Action PNV #[id number] acid-[id number] 30 mg iron-10 mg iron-1 mg capsule 1 cap PO DAILY famotidine [Pepcid] 20 mg tablet 20 mg PO BID Referrals / Follow Up: Shahbaz Aleman MD [Primary Care Provider] -
--- NOTE | 2022-04-15 23:22 | NURSING ---
pt to rm 7 at at 2223
[2022-04-16] VITALS: BP 114/73; PULSE 108; RESP 17; TEMP 36.6
[2022-04-16] MEDS: Oxytocin 15 Units/NS 250ml 15 UNITS/250 ML IV.SOLN 83 UNITS IV (00:30)
[2022-04-16 04:42] VITALS: BP 117/60; PULSE 97; RESP 16; TEMP 36.9
[2022-04-16] MEDS: Acetaminophen 500 MG Tablet 1000 MG PO (06:35)
--- NOTE | 2022-04-16 07:30 | PCM.PN.OB ---
Subjective Subjective Patient doing well without complaints. Tolerating PO. Ambulating and voiding without difficulty. feeding well. Denies chest pain, shortness of breath, calf pain/swelling, fevers, chills, lightheadedness. Objective Data Objective Data Vital Signs: Vital Signs Temp Pulse Resp BP Pulse Ox O2 Del Method 98.4 F 97 16 117/60 98 Room Air 04/16/22 04:42 04/16/22 04:42 04/16/22 04:42 04/16/22 04:42 04/15/22 22:16 04/16/22 04:42 Oxygen Delivery Method Room Air Weight: 116.6 kg Body Mass Index (BMI) 47.0 Intake & Output: Intake and Output for Last 24 Hours 04/14/22 04/15/22 04/16/22 23:59 23:59 23:59 Intake Total 2368.74 / 2368.74 250 / 250 Output Total 650 / 650 500 / 500 Balance 1718.74 / 1718.74 -250 / -250 Lab / Micro Data Result Diagrams: 04/15/22 10:30 Labs: Laboratory Results - last 24 hr 04/15/22 10:30: WBC 10.7, RBC 4.02 L, Hgb 11.9 L, Hct 34.7 L, MCV 86.3, MCH 29.6, MCHC 34.3, RDW Std Deviation 42.9, RDW Coeff of Dedra 14.0, Plt Count 157, MPV 9.9, Immature Gran % (Auto) 0.700, Neut % (Auto) 72.4 H, Lymph % (Auto) 20.6, [place] % (Auto) 5.3, Eos % (Auto) 0.6, Baso % (Auto) 0.4, Absolute Neuts (auto) 7.7, Absolute Lymphs (auto) 2.20, Nucleated RBC % 0 04/15/22 10:30: Blood Type A POSITIVE, Antibody Screen NEGATIVE ROS Constitutional Constitutional: Reports systems reviewed and no addt'l complaints, except as documented Cardiovascular Cardiovascular: Reports systems reviewed and no addt'l complaints, except as documented Respiratory/Chest Respiratory/Chest: Reports systems reviewed and no addt'l complaints, except as documented Gastrointestinal Gastrointestinal: Reports systems reviewed and no addt'l complaints, except as documented Physical Exam Const alert, oriented x3 and no apparent distress HEENT Head and Scalp: atraumatic Resp normal respiratory effort GI soft to palpation and non-tender Bimanual Exam - Vag & Uterus: uterus non-tender Uterus Palpation: uterus fundus firm (below Umbilicus) Assessment & Plan (1) Vaginal delivery: COMMENT: SM 39 IOL elective girl Gissel PLAN: Plan s/p PPD # 1 1. routine post delivery care 2. breast feeding- support given 3. rh positive 4. rubella immune
[2022-04-16 09:00] VITALS: BP 116/54; PULSE 80; RESP 16; TEMP 36.7
[2022-04-16 12:25] VITALS: BP 100/55; PULSE 93; RESP 16; TEMP 36.9
[2022-04-16 16:42] VITALS: BP 97/61; PULSE 90; RESP 16; TEMP 36.4
[2022-04-16 20:00] VITALS: BP 133/77; PULSE 84; RESP 16; TEMP 36.8
--- NOTE | 2022-04-20 13:10 | NURSING ---
No answer on follow up phone call, left voicemail
== END 2022-04-16 20:45 | disposition home or self-care (01) | DRG 560 ==
PROVIDERS: Admitting Provider Obstetrics & Gynecology; PCP Family Medicine; Visit Provider Obstetrics & Gynecology
DX: O69.81X0 Labor and delivery complicated by cord around neck, without compression, not applicable or unspecified (principal); Z37.0 Single live birth; O99.344 Other mental disorders complicating childbirth; F41.9 Anxiety disorder, unspecified; O99.214 Obesity complicating childbirth; O70.0 First degree perineal laceration during delivery; Z3A.39 39 weeks gestation of pregnancy; Z79.899 Other long term (current) drug therapy; Z87.891 Personal history of nicotine dependence
CPT/HCPCS: 59025; 59050; 85025; 86850; 86900; 86901; 99218; J7120; G0378

== ENCOUNTER 2022-05-25 08:37 | Day surgery (SDC) | payer MEDICAID, SELFPAY ==
[2022-05-25] VITALS (9 sets, daily range): BP systolic 101–116; BP diastolic 61–71; PULSE 72–112; RESP 16–18; TEMP 36.4–36.7; O2SAT 92–96; BMI 42.0
--- NOTE | 2022-05-25 09:17 | HP.PCM_ITS ---
History and Physical Date of Admission: 05/25/22 Intake Vital Signs ? 04/15/2210:35 04/23/2312:49 Height 1.57 m 1.57 m Weight: ? 107.048 kg BMI ? 43.1 BP ? 122/80 H Intake Visit Reasons:?possible mastitis Chief Complaint: Possible mastitis Education Trainer Required: No Is patient in pain?: No Allergies guava Allergy (Mild, Verified 04/23/22 13:50) Hivespomegranate Allergy (Mild, Verified 04/23/22 13:50) Hivesdragonfruit Allergy (Mild, Uncoded 04/23/22 13:50) difficulty breathing Medications vitamin#30 30 mg iron-10 mg iron-folic acid 1 mg-omg3 capsule 1 cap PO DAILY 09/10/21 [History Confirmed 04/23/22] famotidine 20 mg tablet (Pepcid) 20 mg PO BID heartburn 04/15/22 [History Confirmed 04/23/22] Post menopausal: No Patient : No : Yes PFSH Medical History? Amenorrhea Anxiety and depression asthma sports induced Chest pain Easy bruising Epigastric pain GERD (gastroesophageal reflux disease) Vaginal delivery Surgical History? H/O: knee surgery Family History? Mother Cancer ?? ? non hodgkins lymphomaFather Hypertension Social History? Smoking Status:? Former smoker alcohol intake:? never details:? social substance use type:? does not use frequency:? 1-2 times per week seatbelt use:? always do you feel safe at home:? Yes additional social history:? Eric HPI possible mastitis Details: CAMERON CHÁVEZ is a 22 year old who desires permanent sterilization and presents for laparoscopic bilateral salpingetomy History ? ? ? 3 ? Elective abortions ? Hx Para ? ? ? 2 ? Spontaneous abortions ? Hx # Term Pregnancies ? Ectopic pregnancies ? Hx # Pregnancies ? Multiple births ? # of living children ? ? ? 2 Past Pregnancies Del. Date Name GA/Weeks Outcome Route Bth Weight Infant Gen Labor Lgth Anesthesia Del Locatn Provider FOB 03/27/18 Tri[facility] ? live - full term ? Male ? ? [facility] SM ? 04/15/22 Gissel 39 live - full term NS VD ? Female ? epidural [facility] Vivien Reyes Delivery Date: 04/15/22? Last Updated by: Juliette Alegria ? ? ? see problem list for complications, and IOL 39 elective sm girl gissel. ROS Const Constitutional: Denies fatigue, fever(s), headache(s), increased appetite, poor appetite, weight gain or weight loss ENT ENT: Denies dry mouth GI GI: Reports as per HPI; Denies abdominal pain, constipation, nausea or vomiting : Reports as per HPI Skin Skin/Breast: Reports as per HPI; Denies alopecia, change in hair or dry skin Exam Const General: cooperative, healthy appearing, comfortable, no acute distress and well developed Nutritional Appearance: average body habitus Orientation: alert [facility] Head: normal to inspection and normocephalic Ears: hearing grossly normal bilaterally and external ears normal Nose: external nose normal and nares normal Face and sinus: normal facial exam Neck Neck: normal visual inspection, no lymphadenopathy and trachea midline Thyroid: thyroid normal Chest Chest palpation & inspection: normal inspection of the chest Breast inspection: normal inspection of the breasts and normal inspection of the axillae Breast palpation: normal palpation of the breasts, normal palpation of the axillae and no axillary lymphadenopathy Resp Effort & Inspection: normal respiratory effort GI Inspection: normal to inspection and non-distended Palpation: soft and no hepatosplenomegaly Musc Other: gross motor intact no deficits, full bilateral strength Skin General: no rashes or lesions noted Neuro General: patient alert, patient awake, moves all extremities and no focal motor deficits Motor: muscle tone normal throughout Extrem General: normal to inspection and no pedal edema Psych Appearance: grossly normal Mental Status: mental status grossly normal Affect: normal affect Speech and Movement: speech and movement normal Assessment and Plan Assessment and Plan After discussing the patient's diagnosis and treatment plan options, patient wishes to proceed with surgical management. I have discussed with the patient the risks, benefits, and alternatives of the procedure which include but are not limited to risks of anesthesia, bleeding, infection, possible damage to bowel, bladder, or surrounding vasculature which could lead to additional surgery to evaluate any complications. Patient agrees to procedure and wishes to proceed. ACOG/uptodate references given for additional information regarding procedure. plan for laparoscopic bilateral salpingectomy
--- NOTE | 2022-05-25 09:22 | DCINST_ITS ---
Discharge Instructions Diet Discharge Diet: No restrictions Activity Discharge Activity: Return to Normal Activity, May Not Drive (for two weeks or while taking narcotic pain medications.), May Shower and May Take a Tub Bath (in 7 days) May resume sexual activity in: 1 week Weight Bearing Status: Full weight bearing Dressing / Incision Call your doctor if you observe: Using more than 1 pad per hour, Shortness of breath, Chest pain and Uncontrolled pain Suture Line Care: Avoid Pulling/Pushing and Avoid Pinching/Bending Remove Dressing in: 1 week (if present) Cleanse incision/area with: Soap & Water and Keep Dressing Clean & Dry Follow Up Care Please Follow Up With: Ayanna Jason DO When: Call to make an appointment with your doctor for a follow up incision check in 1-2 weeks. Test Results: Test results from this visit will be discussed in further detail at your follow- up appointment, if applicable. Discharge Plan Admission Primary Reason for Your Visit: laparoscopic bilateral salpingectomy Attending Provider: Ayanna Jason Primary Care Provider: Shahbaz Aleman Discharge Orders/Prescriptions Prescriptions: New oxycodone-acetaminophen [Percocet] 5-325 mg tablet 1 tab PO Q4H PRN (Reason: pain) 7 Days Qty: 12 0RF Rx Instructions: 1-2 tabs q 4 hrs as needed for pain naproxen 500 mg tablet 500 mg PO BID PRN (Reason: pain) Qty: 20 0RF No Action buspirone 7.5 mg tablet 7.5 mg PO DAILY Label Comments: take 1 tablet by mouth twice a day omeprazole 20 mg Tablet,Delayed Release (Dr/Ec) 20 mg PO DAILY Referrals / Follow Up: Shahbaz Aleman MD [Primary Care Provider] - Disposition Disposition (needs filled in before D/C Order can be placed): Home, Self Care
[2022-05-25 09:27] LABS: Hematocrit 38.6 % (37-47); Hemoglobin 12.4 g/dL (12.0-15.0); Mean Corp Hgb Conc 32.1 g/dL (32-36); Mean Corpuscular Hgb 27.7 pg (27.0-32.0); Mean Corpuscular Volume 86.2 fL (81-99); Mean Platelet Vol. 9.1 fl (6.2-12.0); Platelet Count 239 K/mm3 (150-450); RBC Distribution Width CV 12.8 % (11.6-14.6); RBC Distribution Width SD 40.4 fl (35.1-43.9); Red Blood Count 4.48 M/mm3 (4.2-5.4); White Blood Count 7.5 K/mm3 (4.4-11.0)
[2022-05-25] MEDS: Lactated Ringers 1,000 ML 15 ML IV ×2 (09:34→11:03)
[2022-05-25 09:37] LABS: Internal QC Validated? YES +Cl - CLEAR BKGD; Pregnancy, Urine Negative Negative
--- NOTE | 2022-05-25 10:17 | OP.PCM_ITS ---
Operative Report Date of Procedure: 05/25/22 preoperative diagnosis: desires permanent sterilization Postoperative diagnosis: Desires permanent sterilization Procedure: Laparoscopic bilateral salpingectomy Surgeon: Dr. Ayanna Jason [employer] Technician: MARCO Zambrano Estimated blood loss: 0 cc Urine output: 300 cc Fluids: 1300 cc Details of the procedure: Patient was brought to the operating room where general anesthesia was found to be adequate. She was prepped and draped in the normal sterile fashion her legs were placed in stirrups a A sponge stick was placed in the vagina. Attention was then turned towards the abdomen. 0.75% Marcaine was injected into the umbilicus and a 5 mm incision was made with an 11 blade scalpel. A 5 mm trocar was inserted into the abdomen under direct visualization using the 5 mm laparoscope. A left lower quadrant 5 mm incision was also made followed by insertion of a 5 mm trocar. Approximately 5 cm above the pubic symphysis in the midline after Marcaine injection a mini grasper and was inserted into the abdomen under direct visualization. The uterus was elevated and manipulated to the right side the left fallopian tube was first grasped with a mini grasper and the underlying mesosalpinx was cauterized and cut to the level of the cornua using the LigaSure device. The fallopian tube was removed through the trocar. The same procedure was performed on the right side. both fallopian tubes were passed off for pathology analysis. Excellent hemostasis was noted at all operative sites. All instruments were removed from the abdomen and CO2 gas was escape from the abdomen. The skin was closed with a 4-0 Monocryl subcuticular stitch and sealed with surgical glue. The vaginal manipulator was removed and a vaginal sweep was performed no foreign objects were left in the vagina. The patient tolerated the procedure well sponge lap needle counts were correct x2 and she is now being brought to the recovery room in stable condition Complications: None Multi Select Codes Urinary/Genital Urinary/Genital CPT Codes: 00408 Laproscopic BS/O
--- NOTE | 2022-05-25 10:20 | FALS_PTH ---
PATIENT: CAMERON CHÁVEZ LOC: [facility] [place] U#:[id number] AGE/SX: ROOM: RE05/25/[address]: Dr. Ayanna Jason DO : 2000 BED: DIS: 05/25/2022 SPEC #: [id number] RECD: 05/25/22 14:00 STATUS: MAINOR SHERRON #: [id number] GINA: 05/25/22 10:[address]: Ayanna Jason DEPT: SURGICAL PATHOLOGY RECD BY: Surjit Silva ENTERED: 05/26/22 09:03 SP TYPE: FALL TUBES OTHR DR: Dr. Shahbaz Aleman MD Tissues: Fallopian tube Procedures: Surgery Specimen Level II HEADER OPERATION: Laparoscopic salpingectomy PRE-OP DIAGNOSIS: Sterilization TISSUE SUBMITTED: Bilateral fallopian tubes MICROSCOPIC DIAGNOSIS Right and left fallopian tubes, salpingectomies: Two complete cross-sections of fallopian tubes with no pathologic change. AM:beatrice 05/27/2022 MICROSCOPIC DESCRIPTION Slides are reviewed. GROSS DESCRIPTION Received in fixative is one container labeled with the patient's name and designated bilateral fallopian tubes. The specimen consists of bilateral fallopian tubes including fimbrial ends measuring 8 cm in length and 0.5 cm in diameter and 5.5 cm in length and 0.5 cm in diameter. The fallopian tubes are not identified as right or left. Sections reveal unremarkable cut surfaces. Operational Review Sergeant sections are submitted in two cassettes with each cassette containing one fallopian tube. / ADALID:beatrice 05/26/2022 TC:4 CPT: 94234 x2
== END 2022-05-25 13:21 | disposition home or self-care (01) ==
LOC: SDC 08:37 → AC 08:38
PROVIDERS: PCP Family Medicine; Referring Provider Obstetrics & Gynecology; Visit Provider Obstetrics & Gynecology
PROC: (CPT 58661; principal; 2022-05-25 10:05)
DX: Z30.2 Encounter for sterilization (principal); K21.9 Gastro-esophageal reflux disease without esophagitis; Z79.899 Other long term (current) drug therapy; Z87.891 Personal history of nicotine dependence
CPT/HCPCS: 58661; 00840; 81025; 85027; 86850; 86900; 86901; 88302; J7120; J2405

== ENCOUNTER 2022-12-12 08:47 | Emergency (ER) | payer MEDICAID, SELFPAY ==
[2022-12-12 08:48] VITALS: BP 135/68; PULSE 84; RESP 16; TEMP 36.3; O2SAT 98; BMI 40.2
--- NOTE | 2022-12-12 09:04 | EDS_ITS ---
HPI History of Present Illness HPI Narrative: Patient presents with right foot and ankle pain that began after a fall 2 days ago. Patient states she fell down 2-3 steps. Patient states her pain is mainly over her right foot and right ankle. Patient states it is on the medial aspect of the right foot and anterior aspect of the right ankle. Patient states it is worse with movement and weightbearing. Patient describes the pain as burning. Patient states it is sharp at times. Patient states her pain slightly with ice. Patient admits to some numbness and tingling into her toes. Patient denies any weakness. Patient denies any head injury or loss of consciousness. Patient denies any other injuries. Chief Complaint: Lower Extremity Injury Informant: patient Occured/Mechanism Mechanism/Context: Yes fall Onset/Context/Timing Onset: Days (2) Context: Sudden Onset Timing: Continuous Quality of Pain: Burning Location: Right foot and right ankle Worsened by: Weightbearing and ambulation Relieved by: Ice Associated Symptoms Associated Symptoms: Positive for Parasthesia; Negative for Weakness or Loss of Funtion PFSH PFS Medical History Alcohol use Amenorrhea Anxiety Anxiety and depression asthma sports induced Back pain Chest pain Easy bruising Epigastric pain Former smoker Gastric reflux GERD (gastroesophageal reflux disease) History of steroid therapy Migraine headache Sterilization consult Vaginal delivery Wears glasses Home Medications buspirone 7.5 mg tablet 7.5 mg PO DAILY 05/18/22 [History Last Taken Unknown] omeprazole 20 mg tablet,delayed release 20 mg PO DAILY 05/18/22 [History Last Taken Unknown] naproxen 500 mg tablet 500 mg PO BID PRN pain #20 tabs 05/25/22 [Rx Last Taken Unknown] oxycodone-acetaminophen 5 mg-325 mg tablet (Percocet) 1 tab PO Q4H PRN pain 7 days #12 tabs 05/25/22 [Rx Last Taken Unknown] Allergy/AdvReac Type Severity Reaction Status Date / Time Food Allergies: Uncoded Allergy Severe Difficulty Verified 08/04/22 13:58 Breathing guava Allergy Mild Hives Verified 05/28/22 15:00 pomegranate Allergy Mild Hives Verified 05/28/22 15:00 Family History Mother Cancer non hodgkins lymphoma Father Hypertension Surgical History H/O: knee surgery Status post laparoscopy Social History Smoking Status: Former smoker alcohol intake: never details: social substance use type: does not use frequency: 1-2 times per week seatbelt use: always do you feel safe at home: Yes additional social history: Eric ROS ROS ED Constitutional Constitutional ED: Denies chills or fever(s) Eyes Eyes: Denies blurry vision or change in vision ENT ENT ED: Denies rhinorrhea or sore throat Cardiovascular Cardiovascular: Denies chest pain or palpitations Respiratory/Chest Respiratory/Chest: Denies cough or dyspnea Gastrointestinal Gastrointestinal: Denies nausea or vomiting Genitourinary Genitourinary ED: Denies dysuria or hematuria Musculoskeletal Musculoskeletal: Reports back pain; Denies neck pain Integumentary Denies abscess or rash Neurologic Neurologic: Denies headache(s) or weakness Allergic/Immunologic Allergic/Immunologic ED: Denies mouth swelling or urticaria EXAM Physical Exam Const Vital Signs: 12/12/22 08:48 Temperature 97.4 F L Temperature Source Temporal Pulse Rate 84 Respiratory Rate 16 Blood Pressure 135/68 H Blood Pressure Mean 90 Pulse Ox 98 Oxygen Delivery Method Room Air Positive well nourished, well developed and obese General Appearance ED: well developed and NAD Nutritional Appearance: obese HEENT Reports moist mucous membranes Neck full ROM and supple Extremity Extremity Narrative: There is tenderness over the medial aspect of her right foot and anterior aspect of the right ankle. There is some mild edema. There is no ecchymosis. There is no bony crepitance or step-off. There is no obvious deformity noted. Range of motion was limited in all motions of the right foot and ankle secondary to pain. There is no tenderness over the fifth metatarsal or proximal fibula. Sensation was intact to light touch in all digits. Capillary refill was less than 2 seconds in all digits. Pedal pulses are equal bilaterally. Neuro oriented x3, CN's II-XII intact bilaterally, moves all extremities and no sensory deficits noted Sensorium / Orientation: alert Motor Exam: strength 5/5 throughout Psych mental status grossly normal MDM MDM MDM Narrative Medical decision making narrative: Differential diagnosis includes fracture, sprain, and contusion. X-rays of the right foot and right ankle will be obtained to assess for fracture or dislocation. Radiography Diagnostic Testing: Clinical Impression(s) from Imaging Studies Ankle X-Ray 12/12/22 09:09 IMPRESSION: No acute osseous injury. Electronically Signed: Gena Jeter MD at 9:25 EDT , Foot X-Ray 12/12/22 09:09 IMPRESSION: No acute osseous injury. Electronically Signed: Gena Jeter MD at 9:26 EDT , X-rays of the right ankle were obtained. There are 3 views. On my independent interpretation, there is no acute fracture. There is no dislocation. There is some mild soft tissue swelling. Radiologist also interpreted the x-rays and agrees. X-rays of the right foot were obtained. There are 3 views. On my independent interpretation, there is no acute fracture. There is no dislocation. There is some mild soft tissue swelling. Radiologist also interpreted the x-rays and agrees. Treatment and Re-Evaluation Narrative: Patient was advised of her results. Patient was advised that this is most likely a soft tissue injury. Patient was offered a walking boot however, she would prefer an Aircast. Patient was given an Aircast. Patient was instructed to ice and elevate the right foot and ankle. Patient was instructed to follow- up with her primary care physician in 5 to 7 days. Patient was instructed to take Tylenol or ibuprofen as needed for pain. Patient understood and was agreeable with the plan. All questions were answered. Discharge Plan Triage Chief Complaint: Lower Extremity Injury ED Provider: Rocco Brown Dx/Rx/DC Orders Clinical Impression: Fall, Right ankle sprain Instructions: ED Ankle Sprain (Adult) Prescriptions: No Action buspirone 7.5 mg tablet 7.5 mg PO DAILY Patient Comments: take 1 tablet by mouth twice a day omeprazole 20 mg Tablet,Delayed Release (Dr/Ec) 20 mg PO DAILY oxycodone-acetaminophen [Percocet] 5-325 mg tablet 1 tab PO Q4H PRN (Reason: pain) 7 Days Qty: 12 0RF Rx Instructions: 1-2 tabs q 4 hrs as needed for pain naproxen 500 mg tablet 500 mg PO BID PRN (Reason: pain) Qty: 20 0RF Primary Care Provider: Shahbaz Aleman Referrals: Shahbaz Aleman MD [Primary Care Provider] - 5-7 Days Disposition Disposition: Home, Self Care
--- NOTE | 2022-12-12 09:09 | RAD_ITS ---
INDICATION: Injury/Pain -- -- injury 2 days ago, lateral foot and ankle pain EXAMINATION/TECHNIQUE: X-RAY - RIGHT XR Foot Min 3 Views 3 VIEWS COMPARISON: No relevant prior comparison study available FINDINGS: SOFT TISSUES: There is soft tissue swelling of the midfoot. No radiopaque foreign body. BONES/JOINTS: No acute fracture or subluxation.. Normal alignment. Preservation of the joint space.. No sclerotic or destructive changes observed. RAD/Foot min 3 Views IMPRESSION: No acute osseous injury. Electronically Signed: Gena Jeter MD at 9:26 EDT ,
--- NOTE | 2022-12-12 09:09 | RAD_ITS ---
INDICATION: Injury/Pain -- -- injury 2 days ago, lateral foot and ankle pain EXAMINATION/TECHNIQUE: X-RAY - RIGHT XR Ankle Min 3 Views 3 VIEWS COMPARISON: Left foot dated September 07, 2019 FINDINGS: SOFT TISSUES: No soft tissue swelling or gas. No radiopaque foreign body. BONES/JOINTS: No acute fracture or subluxation.. Normal alignment. Preservation of the joint space.. There is a well-circumscribed sclerotic focus within the distal tibial diaphysis which may reflect a bone island. RAD/Ankle min 3 Views IMPRESSION: No acute osseous injury. Electronically Signed: Gena Jeter MD at 9:25 EDT ,
== END 2022-12-12 11:00 | disposition home or self-care (01) ==
PROVIDERS: Emergency Provider Emergency Medicine; PCP Family Medicine; Visit Provider Emergency Medicine
DX: S93.401A Sprain of unspecified ligament of right ankle, initial encounter (principal); Z87.891 Personal history of nicotine dependence; M54.9 Dorsalgia, unspecified; W19.XXXA Unspecified fall, initial encounter
CPT/HCPCS: 73610; 73630; 99283

== ENCOUNTER 2023-02-22 13:52 | Outpatient (RCR) | payer MEDICAID, SELFPAY ==
--- NOTE | 2023-02-22 15:06 | HP.PTEVAL ---
Patient's Visit Information Visit Information Visit Information: CAMERON CHÁVEZ is a 23 year old F referred to Physical Therapy by Dr. Edison Perez DPM with a diagnosis of R medial foot pain. Date of Evaluation: 02/22/23 Physical Therapist: Enrique Aragon, PT, ATC Visit Plan Frequency: 2-3x /Week Duration: 4-6 Weeks Plan: R ankle stretching, strengthening, balance and proprio, bike, and HEP Subjective Subjective: Pt reports she rolled her R ankle approximately 2 months ago and has had R ankle pain since. Pt reports she had pain in the ankle at that time, but that pain has since resolved. Pt notes now she only has pain in the medial arch of her R foot. Pt notes she has sprained her R ankle on multiple occasions. Pt reports prolonged walking, prolonged standing, and stair negotiation all produce R foot pain at this time. Pt reports the only thing that helps to decrease her pain is rest. Pt denies sleep difficulty at this time secondary to pain. Pt notes she has not had any diagnostic tests performed at this time. 0/10 pain at this time while resting, 8/10 pain at worst. Pain R foot: Pain Intensity (Out of 10): 0 Pain Intensity Range: 8 Objective Objective: Neuro: B LE sensation is WNL to light touch. ROM: L ankle DF= 20, PF= 65 degrees: R ankle DF= 11, PF= 45 degrees MMT: L ankle DF= 35, PF= 46 #F; R ankle DF= 17, PF= 34 #F Palpation: Pt is very sore on the medial aspect of R ankle near peroneal brevis inserts Balance/Special Test Scores Lower Extremity Functional Score: 41 Goals Goal 1:: Decrease R medial ankle pain x 50% to aid with standing tolerance Goal Time Frame: 4-6 Weeks Goal 2:: Increase R ankle DF ROM x 5-10 degrees to aid with decreasing pain Goal Time Frame: 4-6 Weeks Goal 3:: Increase R ankle strength x 5-10#F to aid with stair negotiation Goal Time Frame: 4-6 Weeks Goal 4:: I with HEP Goal Time Frame: 4-6 Weeks Rehabilitation Potential Physical Therapy Diagnosis: Pt has R medial foot pain, R ankle weakness, and limited R ankle ROM secondary to R ankle tendinopathy Rehabilitation Potential: Good Anticipated Interventions Patient/Client Instruction: Educate patient on: Condition and Plan of Care For the Purpose of:: To improve self management Therapeutic Exercise to Include: Strength training, Endurance training, Flexibilty training and Dynamic Lumbar Stabilization For the Purpose of:: To decrease pain, To increase ROM and To improve muscle performance and motor function Cryotherapy (ice pack, ice massage): Yes For the Purpose of:: To decrease pain Text: Thank you for the opportunity to evaluate your patient. For Medicare and Medicare HMO plans, please review the plan of care and approve it. It will need to be FAXED BACK to us at [phone] for Medicare purposes. For Medicare only, by signing this I certify the plan of care. Please let me know if there are questions or concerns regarding this plan of care. Physician Signature: Date:
--- NOTE | 2023-07-25 12:28 | HP.PT.NRP ---
Patient Information Patient Information: CAMERON CHÁVEZ was seen in my office for initial evaluation on 02/22/23. The following Plan of Care was established for this patient: POC Established Initial Frequency: 2-3x /Week Initial Duration: 4-6 Weeks Anticipated Interventions Patient/Client Instruction: Educate patient on: Condition and Plan of Care For the Purpose of:: To improve self management Therapeutic Exercise to Include: Strength training, Endurance training, Flexibilty training and Dynamic Lumbar Stabilization For the Purpose of:: To decrease pain, To increase ROM and To improve muscle performance and motor function Cryotherapy (ice pack, ice massage): Yes For the Purpose of:: To decrease pain Last Seen Last Seen: This patient was last seen in our office . Pertinent comments regarding their Physical therapy will appear below: Pt was evaluated on 02/22/23 for R foot pain. Pt has not returned through todays date and is discontinued at this time. At this point I will be discontinuing this patient from physical therapy. I would be happy to see this patient again in the future if found appropriate by the physician. Thank you! Enrique Aragon, PT, ATC Balance/Gait/Functional tests Balance/Special Test Scores Lower Extremity Functional Score: 41
== END 2023-02-22 19:00 | disposition home or self-care (01) ==
LOC: PT 13:52
PROVIDERS: PCP Family Medicine; Visit Provider Podiatrist Foot & Ankle Surgery
DX: M21.41 Flat foot [pes planus] (acquired), right foot (principal); M21.42 Flat foot [pes planus] (acquired), left foot; M76.829 Posterior tibial tendinitis, unspecified leg
CPT/HCPCS: 97161

== ENCOUNTER 2023-03-13 13:25 | Emergency (ER) | payer MEDICAID, SELFPAY ==
[2023-03-13 13:27] VITALS: BP 123/74; PULSE 120; RESP 18; TEMP 37.5; O2SAT 97; BMI 42.6
[2023-03-13 14:08] LABS: Absolute Lymphocyte Count 1.14 X10^3/uL (0.83-4.51); Absolute Neutrophil Count 7.3 X10^3/uL (2.0-7.7); Basophil# 0.03 X10^3/uL; Basophil% 0.3 % (0-1); Eosinophils% 1.1 % (0-5); Hematocrit 42.4 % (37-47); Lymphocyte # 1.14 X10^3/ul (0.83-4.51); Lymphocyte % 12.7 % (19-41); Mean Corpuscular Hgb 28.2 pg (27.0-32.0); Mean Corpuscular Volume 85.5 fL (81-99); Mean Platelet Vol. 8.4 fl (6.2-12.0); Monocyte# 0.33 X10^3/uL; Monocyte% 3.7 % (0-10); NRBC Flagged by Analyzer 0 % (0-5); Neutrophil # 7.33 X10^3/uL (2.7-7.7); Neutrophil % 81.9 % (47-70); Platelet Count 245 K/mm3 (150-450); RBC Distribution Width CV 12.9 % (11.6-14.6); RBC Distribution Width SD 39.8 fl (35.1-43.9); Red Blood Count 4.96 M/mm3 (4.2-5.4)
[2023-03-13 14:22] LABS: AST(SGOT) 15 U/L (15-37); Alanine Aminotransfer ALT/SGPT 26 U/L (13-56); Albumin, Serum 3.6 g/dL (3.2-5.0); Alkaline Phosphatase 84 U/L (45-117); Anion Gap 7 (5-15); BUN 11 mg/dL (7-18); Calcium,Total 8.9 mg/dL (8.5-10.1); Chloride 107 mmol/L (98-107); Creatinine, Serum 0.78 mg/dL (0.55-1.02); EST Glomerular Filtration Rate 96 mL/min (>60); Est Glom Filt Rate - Afr Amer 116 mL/min (>60); Estimated Creatinine Clearance 87.96 ml/min; Globulin 3.7 g/dL (2.2-4.2); Glucose 90 mg/dL (74-106); Protein, Total 7.3 g/dL (6.4-8.2); Sodium Level 139 mmol/L (136-145)
[2023-03-13 14:26] LABS: Internal QC Validated? YES +Cl - CLEAR BKGD; Pregnancy, Serum, hCG Quali. NEGATIVE Negative
--- NOTE | 2023-03-13 14:42 | EDS_ITS ---
HPI HPI - GI History of Present Illness Chief Complaint: Abd Pain Narrative Narrative: 23-year-old female presenting with epigastric pain, nausea, vomiting. She states it started last evening. She had a fever 102 ?F last night. She states that her son has similar symptoms although he has not had a fever. Patient denies cough or shortness of breath. Denies urinary or vaginal complaints. Patient states that they had Thanksgiving dinner last night and only she and her son became ill. All of her other family numbers have been fine after eating dinner. PFSH PFSH Medical History Alcohol use Amenorrhea Anxiety Anxiety and depression asthma sports induced Back pain Chest pain Easy bruising Epigastric pain Former smoker Gastric reflux GERD (gastroesophageal reflux disease) History of steroid therapy Migraine headache Sterilization consult Vaginal delivery Wears glasses Home Medications omeprazole 20 mg tablet,delayed release 20 mg PO DAILY 05/18/22 [History Last Taken Unknown] escitalopram oxalate 10 mg tablet (Lexapro) 10 mg PO DAILY 01/25/23 [History L ast Taken Unknown] dicyclomine 20 mg tablet 20 mg PO TID PRN abdominal pain #20 tabs 03/13/23 [Rx Last Taken Unknown] ondansetron 4 mg disintegrating tablet 4 mg PO Q8H PRN PRN Nausea #14 tabs 03/13/23 [Rx Last Taken Unknown] sucralfate 100 mg/mL oral suspension (Carafate) 10 ml PO BID PRN abdominal pain #200 mL 03/13/23 [Rx Last Taken Unknown] Allergy/AdvReac Type Severity Reaction Status Date / Time Food Allergies: Uncoded Allergy Severe Difficulty Verified 03/13/23 13:27 Breathing guava Allergy Mild Hives Verified 03/13/23 13:27 pomegranate Allergy Mild Hives Verified 03/13/23 13:27 Family History Mother Cancer non hodgkins lymphoma Father Hypertension Surgical History H/O: knee surgery Status post laparoscopy Social History Smoking Status: Former smoker alcohol intake: never details: social substance use type: does not use frequency: 1-2 times per week seatbelt use: always do you feel safe at home: Yes additional social history: Eric ROS ROS ED Constitutional Constitutional ED: Denies chills, fever(s) or sweats Eyes Eyes: Denies blurry vision or change in vision ENT ENT ED: Denies ear pain or sore throat Cardiovascular Cardiovascular: Denies chest pain, palpitations or racing heartbeat Respiratory/Chest Respiratory/Chest: Denies cough, dyspnea or sputum Gastrointestinal Gastrointestinal: Reports abdominal pain, diarrhea, nausea and vomiting; Denies constipation Genitourinary Genitourinary ED: Denies dysuria, hematuria or urinary frequency Musculoskeletal Musculoskeletal: Denies arthralgias, myalgias or neck pain Integumentary Denies abscess, Abrasions or rash Neurologic Neurologic: Denies headache(s), paresthesias or weakness Psychiatric Psychiatric: Denies anxiety, depression, suicidal ideation or suicidal thoughts Endocrine Endocrinology: Denies polydipsia or polyuria EXAM Physical Exam Const Vital Signs: 03/13/23 13:27 03/13/23 15:42 Temperature 99.5 F H Temperature Source Temporal Pulse Rate 120 H 100 Respiratory Rate 18 Blood Pressure 123/74 H 114/74 Blood Pressure Mean 90 87 Pulse Ox 97 Oxygen Delivery Method Room Air General Appearance ED: NAD; Negative for pallor HEENT Reports moist mucous membranes Eyes PERRL and EOMs intact bilaterally Resp normal respiratory effort Effort and Inspection: Negative for respiratory distress Cardio regular rate Rate: tachycardic GI Palpation: tender epigastric Neuro CN's II-XII intact bilaterally Sensorium / Orientation: alert Psych mental status grossly normal Skin no wounds General Skin Exam: Negative for jaundice or pallor MDM MDM MDM Narrative Medical decision making narrative: Patient with nausea, vomiting, diarrhea, febrile illness. Differential includes viral illness, food poisoning, dehydration, electrolyte abnormalities, , CBC obtained to assess white blood cell count, hemoglobin, platelets. CMP to assess liver function, renal function, electrolytes, glucose. hCG to assess for . Urinalysis to assess for UTI. COVID and flu test will be obtained. Patient medicated with Bentyl, Zofran, Pepcid. CBC shows normal white blood cell count 9.0. Hemoglobin 14.0. Platelets 245. LFTs, renal function, electrolytes all within normal limits. hCG negative. I went to reevaluate the patient at 3:40 PM and she still has not been medicated. Discussed with nursing. We could medicated now has the nursing staff states they have her medications. COVID returned negative. Influenza negative. Patient feeling better after medication. She will be sent home with Teresa Byrne Zofran. Return precautions discussed. Impression: 1. Viral gastroenteritis 2. Nausea/vomiting 3. Abdominal Lab Data Attestation: I reviewed the patient's lab results. Labs: Laboratory Results - last 24 hr 03/13/23 03/13/23 14:00 15:22 WBC 9.0 RBC 4.96 Hgb 14.0 Hct 42.4 MCV 85.5 MCH 28.2 MCHC 33.0 RDW Std Deviation 39.8 RDW Coeff of Dedra 12.9 Plt Count 245 MPV 8.4 Immature Gran % (Auto) 0.300 Neut % (Auto) 81.9 H Lymph % (Auto) 12.7 L Gilchrist % (Auto) 3.7 Eos % (Auto) 1.1 Baso % (Auto) 0.3 Absolute Neuts (auto) 7.3 Absolute Lymphs (auto) 1.14 Nucleated RBC % 0 Sodium 139 Potassium 4.0 Chloride 107 Carbon Dioxide 25.0 Anion Gap 7 BUN 11 Creatinine 0.78 Estim Creat Clear Calc 87.96 Est GFR (MDRD) Af Amer 116 Est GFR (MDRD) Non-Af 96 BUN/Creatinine Ratio 14.0 Glucose 90 Calcium 8.9 Total Bilirubin 0.60 AST 15 ALT 26 Alkaline Phosphatase 84 Total Protein 7.3 Albumin 3.6 Globulin 3.7 Albumin/Globulin Ratio 1.0 Serum , Qual NEGATIVE Urine Color Yellow Urine Clarity Sl. Cloudy Urine pH 5.0 Ur Specific [place] 1.020 Urine Protein 15 H Urine Glucose (UA) Normal Urine Ketones Negative Urine Occult Blood 250 H Urine Nitrite Negative Urine Bilirubin Negative Urine Urobilinogen Normal Ur Leukocyte Esterase 100 H Urine RBC 5-10 SEEN Urine WBC 5-10 SEEN Ur Squamous Epith Cells 5-10 SEEN Amorphous Sediment 2+ URATE Urine Bacteria RARE Urine Mucus 0 SEEN Discharge Plan Triage Chief Complaint: Abd Pain Other Complaint: Nausea/Vomiting/Diarrhea ED Provider: Darien Gilman Dx/Rx/DC Orders Instructions: ED Gastroenteritis, Viral (Adult) Prescriptions: New ondansetron 4 mg tablet,disintegrating 4 mg PO Q8H PRN PRN (Reason: Nausea) Qty: 14 0RF sucralfate [Carafate] 100 mg/mL suspension 10 ml PO BID PRN (Reason: abdominal pain) Qty: 200 0RF dicyclomine 20 mg tablet 20 mg PO TID PRN (Reason: abdominal pain) Qty: 20 0RF No Action escitalopram oxalate [Lexapro] 10 mg tablet 10 mg PO DAILY omeprazole 20 mg Tablet,Delayed Release (Dr/Ec) 20 mg PO DAILY Primary Care Provider: Shahbaz Aleman Referrals: Shahbaz Aleman MD [Primary Care Provider] - Disposition Disposition: Home, Self Care
[2023-03-13 15:25] LABS: Mucous, Urine 0 SEEN /hpf (<or=2+)
[2023-03-13 15:34] LABS: Color, Urine Yellow (Yellow); Glucose, Dipstick Normal (Normal); Ketone-Dipstick Negative (Negative); Leukocyte Esterase-Dipstick 100 /ul (Negative); Nitrite-Dipstick Negative (Negative); Occult Blood-Urine 250 /ul (Negative); Protein-Dipstick 15 mg/dl (Negative); Urine Bilirubin Dipstick Negative (Negative); Urine Clarity Sl. Cloudy (Clear); Urine Urobilinogen Normal (Normal)
[2023-03-13] MEDS: Dicyclomine 20 MG/2 ML Vial IM (15:34)
[2023-03-13] MEDS: Ondansetron 4 MG/2 ML Vial IV (15:34)
[2023-03-13] MEDS: Famotidine 200 MG/20 ML MDV 20 MG in 0.9% Normal Saline (Pres. free 8 ML 300 MG IV (15:35)
[2023-03-13 15:41] LABS: Bacteria RARE /hpf (None Seen); Red Blood Cells-Urine 5-10 SEEN /hpf (0-5); Squamous Epithelial Cells - UA 5-10 SEEN /hpf (5-10); White Blood Cells 5-10 SEEN /hpf (0-5)
[2023-03-13 15:42] VITALS: BP 114/74; PULSE 100
[2023-03-13 15:42] LABS: Amorphous Sediment 2+ URATE
[2023-03-13] MEDS: Mag Hydrox/Al Hydrox/Simeth 30 ML UDC PO (16:12)
[2023-03-13 16:28] VITALS: BP 109/73; PULSE 102; RESP 18; O2SAT 98
== END 2023-03-13 16:29 | disposition home or self-care (01) ==
PROVIDERS: Emergency Provider Student in an Organized Health Care Education/Training Program; PCP Family Medicine; Visit Provider Student in an Organized Health Care Education/Training Program
DX: A08.4 Viral intestinal infection, unspecified (principal); Z87.891 Personal history of nicotine dependence
CPT/HCPCS: 80053; 81001; 84703; 85025; 87428; 96365; 96375; 99284; A4216; J2405; J3490

== ENCOUNTER → 2023-04-08 | Outpatient (CLI) | payer MEDICAID, SELFPAY | END | disposition home or self-care (01) | LOC: LABSPEC 15:09 | PROVIDERS: PCP Family Medicine; Referring Provider Physician Assistant Surgical; Visit Provider Physician Assistant Surgical | DX: N39.0 Urinary tract infection, site not specified (principal) | CPT/HCPCS: 87086; 87088 ==

== ENCOUNTER → 2023-08-25 | Outpatient (CLI) | payer MEDICAID, SELFPAY ==
[2023-08-25 14:01] LABS: Bacteria 0 SEEN /hpf (None Seen); Mucous, Urine 0 SEEN /hpf (<or=2+); Red Blood Cells-Urine 0 SEEN /hpf (0-5); White Blood Cells 0 SEEN /hpf (0-5)
[2023-08-25 14:14] LABS: Color, Urine Yellow (Yellow); Glucose, Dipstick Normal (Normal); Ketone-Dipstick Negative (Negative); Leukocyte Esterase-Dipstick Negative /ul (Negative); Nitrite-Dipstick Negative (Negative); Occult Blood-Urine Negative /ul (Negative); Protein-Dipstick Negative (Negative); Urine Bilirubin Dipstick Negative (Negative); Urine Clarity Clear (Clear); Urine Urobilinogen Normal (Normal)
[2023-08-25 14:32] LABS: Amorphous Sediment 1+; Squamous Epithelial Cells - UA 0-5 SEEN /hpf (5-10)
== END | disposition home or self-care (01) ==
LOC: LABSPEC 12:42
PROVIDERS: PCP Family Medicine; Referring Provider Physician Assistant Surgical; Visit Provider Physician Assistant Surgical
DX: N89.8 Other specified noninflammatory disorders of vagina (principal)
CPT/HCPCS: 81001; 87077; 87086; 87088; 87186

== ENCOUNTER 2024-07-29 10:56 | Emergency (ER) | payer SELFPAY ==
[2024-07-29 10:56] VITALS: BP 115/67; PULSE 78; RESP 16; TEMP 37.2; O2SAT 98; BMI 37.2
--- NOTE | 2024-07-29 11:06 | EDS_ITS ---
HPI <BOB Graves - Last Filed: 07/29/24 11:34> History of Present Illness Chief Complaint: Wound Narrative Narrative: 24-year-old female presents with a boil on her left lower abdominal wall. She had a bump in the area for a a while that it became larger and inflamed over the last week. She tried to dry it out with rubbing alcohol. It has developed a yellow head/crust. She has had no fever or chills. No history of abscess or similar symptoms. PFSH <BOB Graves - Last Filed: 07/29/24 11:34> COUNT INCLUDES THE [facility] Medical History Alcohol use Amenorrhea Anxiety Anxiety and depression asthma sports induced Back pain Chest pain Easy bruising Epigastric pain Former smoker Gastric reflux GERD (gastroesophageal reflux disease) History of steroid therapy Migraine headache Sterilization consult Vaginal delivery Wears glasses Home Medications ?Medication ?Instructions ?Recorded ?Last Taken ?Type escitalopram oxalate 10 mg tablet 10 mg PO DAILY 01/25 Unknown History (Lexapro) famotidine 10 mg tablet (Pepcid AC) 10 mg PO DAILY Unknown History benzonatate 200 mg capsule 200 mg PO TID PRN cough #20 caps 03/26/24 Unknown Rx tobramycin 0.3 % eye drops 1 drp ophthalmic (eye) Q2H #5 mL 03/26/24 Unknown Rx cephalexin 500 mg capsule 500 mg PO Q6 5 days #20 CAPS ULES 07/29/24 Unknown Rx Allergy/AdvReac Type Severity Reaction Status Date / Time Food Allergies: Uncoded Allergy Severe Difficulty Verified 07/29/24 10:56 Breathing guava Allergy Mild Hives Verified 07/29/24 10:56 pomegranate Allergy Mild Hives Verified 07/29/24 10:56 Family History Mother Cancer non hodgkins lymphoma Father Hypertension Surgical History H/O: knee surgery Status post laparoscopy Social History Smoking Status: Former smoker alcohol intake: never details: social substance use type: does not use frequency: 1-2 times per week seatbelt use: always do you feel safe at home: Yes additional social history: Eric ROS <BOB Graves - Last Filed: 07/29/24 11:34> ROS ED ROS Narrative Constitutional: Negative for fever, chills, malaise. GI: Negative for nausea, vomiting. Skin: Positive for pustule/abscess. EXAM <BOB Graves - Last Filed: 07/29/24 11:34> Physical Exam Narrative Exam Narrative: CONST: Patient sitting in no acute distress. EYES: Normal inspection. NECK: Normal inspection. RESP: No respiratory distress, CTAB. CVS: Regular rate and rhythm, no murmur, no gallop. SKIN: Small driedyellow crusted scab with halo of surrounding erythema on left lower abdomen. No fluctuance or crepitus. EXTREMITIES: Normal appearance, no pedal edema. NEURO: Alert and answering questions appropriately. PSYCH: Normal affect. Const Vital Signs: 07/29/24 10:56 Temperature 98.9 F Temperature Source Oral Pulse Rate 78 Respiratory Rate 16 Blood Pressure 115/67 Blood Pressure Mean 83 Pulse Ox 98 Oxygen Delivery Method Room Air <Dr. López Hollins MD - Last Filed: 07/29/24 11:25> Physical Exam Const Vital Signs: 07/29/24 10:56 Temperature 98.9 F Temperature Source Oral Pulse Rate 78 Respiratory Rate 16 Blood Pressure 115/67 Blood Pressure Mean 83 Pulse Ox 98 Oxygen Delivery Method Room Air MDM <BOB Graves - Last Filed: 07/29/24 11:34> [facility] MDM Narrative Medical decision making narrative: 24-year-old female developed a pustule on her left lower abdomen that is now a dried scab with halo of erythema. She appears well nontoxic. Afebrile and hemodynamically stable. It looks like a pustule that has dried with surrounding inflammation/early cellulitis. I placed 2 cc of 1% lidocaine under the scab and removed it with a scalpel and tweezers. There was no purulent material. I prescribed Keflex and discussed wound care and return precautions and she was discharged in stable condition. I have personally performed a face to face assessment of the patient and have reviewed the CARLOS ALBERTO Note. I performed a substantive portion of the visit including all aspects of the following. My newman findings include: History is [24-year-old female signed scab on her left lower abdomen for months. Recently it started becoming mildly uncomfortable with mild area of redness around. No pus or discharge. She is concerned it may be infected.] Exam is [well-appearing 24-year-old female. Vital signs stable afebrile. H EENT exam pupils round react light. Moist extremities. Lungs clear equal symmetrical bilaterally. Heart regular rhythm rate about 80 no murmur. Chest wall ribs nontender. Abdomen soft nondistended normal bowel sounds without peritoneal signs. There is a small wound left lower abdomen with a scab over it. There is about half inch to an inch of redness around it consistent with mild cellulitis. There is no fluctuance or obvious abscess. There is no drainage or discharge. Skin is not necrotic. Patient moving all 4 extremities. Nontender no edema. Back nontender. Neurologically she is awake alert.] Medical Decision Making [small scab or wound left lower abdominal wall. Locally anesthetized and we remove the top of the scab. To see if there is any pus or drainage. Patient be placed on Keflex for a week.] Other additions or changes: <Dr. López Hollins MD - Last Filed: 07/29/24 11:25> [facility] MDM Narrative Medical decision making narrative: I have personally performed a face to face assessment of the patient and have reviewed the CARLOS ALBERTO Note. I performed a substantive portion of the visit including all aspects of the following. My newman findings include: History is [24-year-old female signed scab on her left lower abdomen for months. Recently it started becoming mildly uncomfortable with mild area of redness around. No pus or discharge. She is concerned it may be infected.] Exam is [well-appearing 24-year-old female. Vital signs stable afebrile. H EENT exam pupils round react light. Moist extremities. Lungs clear equal symmetrical bilaterally. Heart regular rhythm rate about 80 no murmur. Chest wall ribs nontender. Abdomen soft nondistended normal bowel sounds without peritoneal signs. There is a small wound left lower abdomen with a scab over it. There is about half inch to an inch of redness around it consistent with mild cellulitis. There is no fluctuance or obvious abscess. There is no drainage or discharge. Skin is not necrotic. Patient moving all 4 extremities. Nontender no edema. Back nontender. Neurologically she is awake alert.] Medical Decision Making [small scab or wound left lower abdominal wall. Locally anesthetized and we remove the top of the scab. To see if there is any pus or drainage. Patient be placed on Keflex for a week.] Other additions or changes: History & Record Review Discussion w/independent historian: Patient and Family Additional record(s) reviewed:: Prior labs Discharge Plan Triage Chief Complaint: Wound ED Midlevel Provider: Loida Sutton ED Provider: López Hollins Dx/Rx/DC Orders Clinical Impression: Skin pustule Instructions: Staph MRSA Prescriptions: New cephalexin 500 mg capsule 500 mg PO Q6 5 Days Qty: 20 0RF No Action escitalopram oxalate [Lexapro] 10 mg tablet 10 mg PO DAILY famotidine [Pepcid AC] 10 mg tablet 10 mg PO DAILY tobramycin 0.3 % drops 1 drp ophthalmic (eye) Q2H Qty: 5 0RF Rx Instructions: to affected eye while awake first 24 hours, then 3x/day on days 2-5 benzonatate 200 mg capsule 200 mg PO TID PRN (Reason: cough) Qty: 20 0RF Primary Care Provider: Shahbaz Aleman Referrals: Shahbaz Aleman MD [Primary Care Provider] - As Needed Activity Restrictions/Additional Instructions: Clean area once daily and take the antibiotics. If develop worsening redness, swelling, or fever please be reevaluated Print Language: Iranian Disposition Disposition: Home, Self Care
[2024-07-29] MEDS: Lidocaine 1% (20 ml mdv) 20 ML Vial INFILT (11:38)
== END 2024-07-29 11:50 | disposition home or self-care (01) ==
PROVIDERS: Emergency Provider Emergency Medicine; PCP Family Medicine; Visit Provider Emergency Medicine
DX: L08.9 Local infection of the skin and subcutaneous tissue, unspecified (principal); Z87.891 Personal history of nicotine dependence; K21.9 Gastro-esophageal reflux disease without esophagitis
CPT/HCPCS: 99282

== ENCOUNTER 2024-11-12 09:30 | Emergency (ER) | payer SELFPAY ==
[2024-11-12 09:30] VITALS: BP 137/94; PULSE 85; RESP 16; TEMP 37; O2SAT 98; BMI 38.6
--- NOTE | 2024-11-12 09:41 | EX.ED.DYSGE1 ---
HPI History of Present Illness Chief Complaint: Chest Pain Informant: patient Onset/Context/Timing Onset: Yesterday Context: Gradual Onset Timing: Continuous Quality: Pressure, sharp Location: Substernal Worsened by: Deep breathing Relieved by: Nothing Narrative Narrative: Patient presents with substernal chest pain that began yesterday. Patient states that she was having a lot of vomiting yesterday. Patient states her pain started shortly after vomiting episode. Patient describes her pain as sharp and pressure-like. Patient states her pain is worse when she takes a deep breath in. Patient states she does feel short of breath at times as well. Patient admits to a low-grade fever of 100.2 at home. Patient states she took ibuprofen for this. Patient states he got better when she went to urgent care. Patient states that the urgent care told her to come to the emergency department for further evaluation. [facility] Medical History (Updated 11/12/24 @ 11:[address] Rocco Brown DO) Wears glasses Anxiety Alcohol use History of steroid therapy Back pain Migraine headache Gastric reflux Former smoker Vaginal delivery Sterilization consult Epigastric pain GERD (gastroesophageal reflux disease) Amenorrhea Easy bruising Chest pain asthma sports induced Anxiety and depression Home Medications ?Medication ?Instructions ?Recorded ?Last Taken ?Type escitalopram oxalate 20 mg tablet 20 mg PO DAILY 11/12/24 11/07/24 History ibuprofen 200 mg tablet (Advil) 400 mg PO Q8H PRN fever 11/12/24 11/12/24 History sumatriptan succinate 100 mg tablet 100 mg PO PRN MIGRAINE 11/12/24 Unknown History topiramate 25 mg tablet 25 mg PO BID 11/12/24 11/07/24 History Allergy/AdvReac Type Severity Reaction Status Date / Time Food Allergies: Uncoded Allergy Severe Difficulty Verified 11/12/24 09:30 Breathing guava Allergy Mild Hives Verified 11/12/24 09:30 pomegranate Allergy Mild Hives Verified 11/12/24 09:30 Family History Mother Cancer non hodgkins lymphoma Father Hypertension Surgical History (Updated 11/12/24 @ 09:[address] Rocco Brown DO) Status post laparoscopy H/O: knee surgery Social History Smoking Status: Former smoker alcohol intake: never details: social substance use type: does not use frequency: 1-2 times per week seatbelt use: always do you feel safe at home: Yes additional social history: Eric ROS ROS ED Constitutional Constitutional ED: Reports fever(s); Denies chills Eyes Eyes: Denies blurry vision or change in vision ENT ENT ED: Denies rhinorrhea or sore throat Cardiovascular Cardiovascular: Reports chest pain; Denies palpitations Respiratory/Chest Respiratory/Chest: Reports dyspnea; Denies cough Gastrointestinal Gastrointestinal: Reports nausea and vomiting Genitourinary Genitourinary ED: Denies dysuria or hematuria Musculoskeletal Musculoskeletal: Reports back pain; Denies neck pain Integumentary Denies abscess or rash Neurologic Neurologic: Denies headache(s) or weakness Allergic/Immunologic Allergic/Immunologic ED: Denies mouth swelling or urticaria EXAM Physical Exam Const Vital Signs: 11/12/24 09:30 Temperature 98.6 F Temperature Source Oral Pulse Rate 85 Respiratory Rate 16 Blood Pressure 137/94 H Blood Pressure Mean 108 Pulse Ox 98 Oxygen Delivery Method Room Air Positive well nourished and well developed Constitutional Narrative: BMI is 38.6. General Appearance ED: well developed and NAD HEENT Reports moist mucous membranes Neck supple and no JVD Resp normal respiratory effort and clear to auscultation bilaterally Cardio regular rate and regular rhythm GI non-tender and non-distended Palpation: soft Extremity normal to inspection General Extremety ED: Negative for edema or tenderness General Extremity: Negative for edema Neuro oriented x3, CN's II-XII intact bilaterally and no sensory deficits noted Sensorium / Orientation: alert Motor Exam: strength 5/5 throughout Psych mental status grossly normal MDM MDM MDM Narrative Medical decision making narrative: Differential diagnosis includes aspiration pneumonia, bronchitis, pleurisy, cardiac dysrhythmia, and musculoskeletal pain. EKG will be obtained to assess for cardiac dysrhythmia and cardiac ischemia. Chest x-ray will be obtained to assess for aspiration pneumonia, pneumothorax, and bronchitis. Radiography Chest X-Ray - ED: 2 View, Read by ED Physician, Read by Radiologist and No Acute Disease Diagnostic Testing: Clinical Impression(s) from Imaging Studies Chest X-Ray 11/12/24 09:53 IMPRESSION: No acute pulmonary process, no interval change Reading Location: [facility] [place] and lateral chest x-ray was obtained. There are 2 views. On my independent interpretation, lung ro are clear. There is normal cardiac silhouette. Bony thorax is normal. There is no acute process noted. Radiologist also interpreted the x-ray and agrees. EKG Initial EKG: Attestation: I personally reviewed and interpreted this EKG as follows: Interpretation: Sinus Rhythm (72) and No Acute Injury Pattern Comments: EKG was obtained. On my independent interpretation, it showed a normal sinus rhythm with a rate of 72. MS interval, QRS interval, and QTc intervals were all normal. [place] was normal. There are no acute ST or T wave changes. Prior EKG tracings: available for review Prior: Unchanged (02/16/2018) Treatment and Re-Evaluation :: Patient was advised of her findings. Patient was advised that this is most likely a muscular strain. Patient instructed take ibuprofen as needed for any pain. Patient declined nausea medication. Patient was instructed to start with a liquid diet and advance as tolerated. Patient was instructed to follow-up with her primary care physician in 5 to 7 days. Patient was instructed return if worse in any way. Patient understood and was agreeable with the plan. All questions were answered. Discharge Plan Triage Chief Complaint: Chest Pain ED Provider: Rocco Bronw Dx/Rx/DC Orders Clinical Impression: Chest wall pain, Nausea and vomiting Instructions: ED Chest Wall Pain, Costochondritis, ED Vomiting (Adult) Prescriptions: No Action topiramate 25 mg tablet 25 mg PO BID escitalopram oxalate 20 mg tablet 20 mg PO DAILY ibuprofen [Advil] 200 mg tablet 400 mg PO Q8H PRN (Reason: fever) sumatriptan succinate 100 mg tablet 100 mg PO PRN Primary Care Provider: Shahbaz Aleman Referrals: Shahbaz Aleman MD [Primary Care Provider] - 5-7 Days Print Language: Kiswahili Disposition Disposition: Home, Self Care
--- NOTE | 2024-11-12 09:53 | RAD_ITS ---
PROCEDURE: CHEST PA AND LATERAL 11/12/2024 REASON FOR EXAM: CHEST PAIN TECHNIQUE: CHEST PA AND LATERAL COMPARISON: 2018 FINDINGS: Hardware: None Heart: The heart size is normal. Mediastinum: The mediastinal contour is unremarkable. Lungs: The lungs are clear. Bones: The bones are unremarkable. RAD/Chest PA and Lateral IMPRESSION: No acute pulmonary process, no interval change Reading Location: [id number]
--- NOTE | 2024-11-12 09:53 | EKG12_ITS ---
Test Reason : CP Blood Pressure : */* mmHG Vent. Rate : 72 BPM Atrial Rate : 72 BPM P-R Int : 138 ms QRS Dur : 88 ms QT Int : 384 ms P-R-T Axes : 30 27 5 degrees QTcB Int : 420 ms Normal sinus rhythm with sinus arrhythmia Normal ECG Confirmed by MARCELLE CID, JODY ([id number]), editor & co founder DONALD TORRES ([id number]) on 11/13/2024 1:00:38 PM Referred By: Confirmed By: JODY IBANEZ MD
[2024-11-12 11:46] VITALS: BP 112/68; PULSE 67; RESP 16; TEMP 36.9; O2SAT 100
== END 2024-11-12 11:46 | disposition home or self-care (01) ==
PROVIDERS: Emergency Provider Emergency Medicine; PCP Family Medicine; Visit Provider Emergency Medicine
DX: R07.89 Other chest pain (principal); R11.2 Nausea with vomiting, unspecified; Z87.891 Personal history of nicotine dependence; F41.9 Anxiety disorder, unspecified; Z79.899 Other long term (current) drug therapy; F32.A Depression, unspecified
CPT/HCPCS: 71046; 93005; 99282